=== PATIENT | female | born 1960 | race Caucasian/White ===

== ENCOUNTER 2019-09-15 08:20 | Outpatient (CLI) | payer MEDICARE, MEDICAID, SELFPAY ==
--- NOTE | 2019-09-15 | US_ITS ---
WS: [id number] RIGHT UPPER QUADRANT ULTRASOUND HISTORY: ELEVATED alkaline PHOSPHATASE COMPARISON: 10/06/2016 Liver: 15.0 cm in length. Normal size and echogenicity with no intrahepatic dilatation. No mass. Gallbladder: Normally distended gallbladder with no stones or wall thickening. CBD: 2.1 cm Pancreas: Normal size and echogenicity. Right kidney: 9.3 cm in length. Normal echogenicity with no mass or hydronephrosis. Aorta and IVC: Unremarkable. No ascites. US/US abdomen limited [id number] IMPRESSION: Normal RIGHT upper quadrant ultrasound.
== END 2019-09-15 08:21 | disposition home or self-care (01) ==
LOC: RADOUTREAD 15:33
PROVIDERS: PCP Nurse Practitioner Family; Visit Provider Nurse Practitioner Family
DX: Z01.89 Encounter for other specified special examinations (principal)

== ENCOUNTER 2019-09-16 11:58 | Outpatient (CLI) | payer MEDICARE, MEDICAID, SELFPAY ==
--- NOTE | 2019-09-16 12:02 | MM_ITS ---
WS: [id number] Bilateral screening digital mammogram, 09/16/2019 Clinical Data: SCREENING Comparison: 01/16/2012, 01/06/2010. Findings: The breast parenchymal pattern shows heterogeneous density. No spiculated masses or clustered calcifi cations are seen. There are no secondary signs of carcinoma. MM/[place] [id number] Impression: 1. Negative bilateral mammogram unchanged. 2. Recommend annual screening mammograms. BIRADS: 1-Negative FOLLOW UP: 1 Year Follow-up The CAD calibration checker was used.
== END 2019-09-16 11:59 | disposition home or self-care (01) ==
LOC: RADSHAW 11:59
PROVIDERS: PCP Nurse Practitioner Family; Visit Provider Nurse Practitioner Family
DX: Z12.31 Encounter for screening mammogram for malignant neoplasm of breast (principal)
CPT/HCPCS: 77067

== ENCOUNTER 2019-09-19 11:36 | Outpatient (CLI) | payer MEDICARE, MEDICAID, SELFPAY ==
--- NOTE | 2019-09-19 11:40 | FL_ITS ---
WS: [id number] MODIFIED BARIUM SWALLOW TECHNIQUE: Modified barium swallow with speech therapy using multiple consistencies. FLUOROSCOPY TIME: 1.8 minutes. CLINICAL INFORMATION: Other dysphagia COMPARISON: None. FINDINGS: Multiple consistencies utilized. No evidence of aspiration or penetration. Some early spillage with p ooling in the vallecula. This cleared with additional liquid. Moderate spondylitic changes cervical s pine. Slight anterolisthesis C4 on C5. No difficulties with barium tablet. FL/FL barium swallow modifd [id number] IMPRESSION: No evidence of aspiration or penetration
== END 2019-09-19 11:37 | disposition home or self-care (01) ==
PROVIDERS: Family Provider Nurse Practitioner Family; PCP Nurse Practitioner Family; Visit Provider Specialist
DX: H90.3 Sensorineural hearing loss, bilateral (principal); R42 Dizziness and giddiness; R13.19 Other dysphagia
CPT/HCPCS: 74230; 92611

== ENCOUNTER 2019-09-22 11:55 | Outpatient (CLI) | payer MEDICARE, MEDICAID, SELFPAY ==
--- NOTE | 2019-09-22 11:58 | CT_ITS ---
WS: [id number] CT LUNG CANCER SCREENING DLP: 79.16 mGy.cm DIvol: 2.28 mGy CLINICAL INFORMATION SCREENING VISIT: Baseline COMPARISON: None available. FINDINGS Diagnostic quality: Satisfactory Comments: None. Lung Nodules: Solid, irregular shaped nodule measuring 4.6 mm at the LEFT apex. May be in part associ ated with the pleural thickening at the apex, image 38 of series 3. There is an additional perifissur al nodule on the LEFT which abuts the inferior LEFT major fissure. This nodule measures 3.6 mm. This nodule is more rounded and extends into the LEFT lower lung field, image 173 of series 3. May be an i ntrafissural lymph node but its configuration appearance suggests additional workup. There are additi onal smaller nodule along the major fissure, seen best on the mid image. No endobronchial lesions. Lungs: Hyperinflated lungs with emphysema. Heart: Normal size heart. No pericardial effusion. Focal calcification in the proximal LEFT anterior descending coronary artery. Other findings: Mild atherosclerosis aorta. No aneurysmal dilatation. There are a few small mediastin al and hilar lymph nodes. Calcification in the posterior inferior LEFT thyroid course. No associated soft tissue nodule. CT/CT lung screening [id number] IMPRESSION: LUNG-RADS: 2-Benign Appearance or Behavior FOLLOW UP: 12 Month: Continue annual screening with LDCT
== END 2019-09-22 11:56 | disposition home or self-care (01) ==
LOC: RAD 11:56
PROVIDERS: Family Provider Nurse Practitioner Family; PCP Nurse Practitioner Family; Visit Provider Nurse Practitioner Family
DX: Z12.2 Encounter for screening for malignant neoplasm of respiratory organs (principal); F17.210 Nicotine dependence, cigarettes, uncomplicated
CPT/HCPCS: G0297

== ENCOUNTER 2020-01-07 08:54 | Outpatient (CLI) | payer MEDICARE, MEDICAID, SELFPAY ==
--- NOTE | 2020-01-07 10:03 | MR_ITS ---
WS: [id number] MRI BRAIN WITH HIGH-RESOLUTION IMAGING THROUGH THE INTERNAL AUDITORY CANALS WITHOUT AND WITH CONTRAST HISTORY: Bilateral SENSORINEURAL HEARING LOSS; DIZZINESS AND GIDDINESS COMPARISON: None available. TECHNIQUE: Multiplanar, multisequence imaging is performed through the brain. Additional 3 mm imaging performed in multiple planes through the internal auditory canal. Postcontrast imaging with 12 ml's of Prohance. No acute intracranial hemorrhage, midline shift, edema or mass effect. Several nonenhancing T2 and FL AIR signal abnormalities in the subcortical and periventricular white matter. Multifocal areas of hemosiderin deposition in the RIGHT cerebellum. Mixed increased and decreased sig nal on the T2 sequences in the RIGHT cerebellum. A focal nodule measures 11 x 10 mm without significa nt enhancement. There is a additional spiderlike area of enhancement consistent with a moderate size venous developmental angioma. Ventricles and extra-axial spaces are normal. No inferior displacement of cerebellar tonsils. Clivus and pituitary gland are normal. Internal and external auditory canals: Unremarkable. Cranial nerves VII and VIII complexes: Unremarkable. No enhancement or mass. Cerebellopontine angles: Normal. Paranasal sinuses: Normal. Mastoid air cells: Normal. Calvarium and scalp: Normal. Visualized gambell of [place] and dural venous sinuses demonstrate no abnormality. MR/MR iac's wo/w con* [id number] IMPRESSION: 1. Normal internal auditory canals. 2. RIGHT cerebellar mixed vascular malformation. No acute hemorrhage. 3. Mild chronic microvascular ischemic disease.
== END 2020-01-07 08:55 | disposition home or self-care (01) ==
LOC: RADSHAW 08:55
PROVIDERS: Family Provider Nurse Practitioner Family; PCP Nurse Practitioner Family; Visit Provider Specialist
DX: H90.3 Sensorineural hearing loss, bilateral (principal); R42 Dizziness and giddiness; R13.19 Other dysphagia; I25.9 Chronic ischemic heart disease, unspecified
CPT/HCPCS: 70553; A9579

== ENCOUNTER 2020-01-22 09:08 | Outpatient (CLI) | payer MEDICARE, MEDICAID, SELFPAY ==
--- NOTE | 2020-01-22 09:38 | NM_ITS ---
WS: [id number] NUCLEAR MEDICINE PARATHYROID SCAN HISTORY: HYPERCALCEMIA COMPARISON: None available. Patient is injected with 19.4 mCi technetium 99m Sestamibi. Static imaging of the anterior neck and u pper thorax submitted at injection time and one hour postinjection. Sternal notch marker and chin mar kers are placed. Normal activity and uptake in the thyroid gland bilaterally on the early imaging. On the delayed imag ing, activity from the thyroid gland has washed out. There is no persistent focal nodule to suggest p arathyroid adenoma. NM/NM parathyroid [id number] IMPRESSION: No parathyroid adenoma identified.
== END 2020-01-22 09:09 | disposition home or self-care (01) ==
PROVIDERS: Family Provider Nurse Practitioner Family; PCP Nurse Practitioner Family; Visit Provider Specialist
DX: E83.52 Hypercalcemia (principal)
CPT/HCPCS: 78070; A9500

== ENCOUNTER 2020-03-17 12:38 | Outpatient (RCR) | payer MEDICARE, MEDICAID, SELFPAY | END 2020-04-14 23:59 | disposition home or self-care (01) | LOC: SPT 12:38 | PROVIDERS: PCP Nurse Practitioner Family; Referring Provider Otolaryngology; Visit Provider Otolaryngology | DX: R42 Dizziness and giddiness (principal); E83.52 Hypercalcemia; E55.9 Vitamin D deficiency, unspecified; R74.8 Abnormal levels of other serum enzymes; F17.200 Nicotine dependence, unspecified, uncomplicated; Z80.1 Family history of malignant neoplasm of trachea, bronchus and lung | CPT/HCPCS: 97110; 97162; 99204 ==

== ENCOUNTER → 2020-04-19 14:12 | Outpatient (BNVA) | payer MEDICARE, MEDICAID, SELFPAY | PROVIDERS: PCP Nurse Practitioner Family; Visit Provider Podiatrist Foot & Ankle Surgery | DX: M96.0 Pseudarthrosis after fusion or arthrodesis (principal); M21.611 Bunion of right foot; M21.612 Bunion of left foot; M79.671 Pain in right foot; M79.672 Pain in left foot | CPT/HCPCS: 73630 ==

== ENCOUNTER → 2020-05-20 14:02 | Outpatient (BNVA) | payer MEDICARE, MEDICAID, SELFPAY | PROVIDERS: PCP Nurse Practitioner Family; Visit Provider Podiatrist Foot & Ankle Surgery | DX: M96.0 Pseudarthrosis after fusion or arthrodesis (principal); M21.611 Bunion of right foot; M21.612 Bunion of left foot | CPT/HCPCS: 73630 ==

== ENCOUNTER → 2020-06-02 14:12 | Outpatient (BNVA) | payer MEDICARE, MEDICAID, SELFPAY | PROVIDERS: PCP Nurse Practitioner Family; Visit Provider Specialist | DX: M79.632 Pain in left forearm (principal) | CPT/HCPCS: 73090 ==

== ENCOUNTER → 2020-07-01 14:54 | Outpatient (BNVA) | payer MEDICARE, MEDICAID, SELFPAY | PROVIDERS: PCP Nurse Practitioner Family; Visit Provider Podiatrist Foot & Ankle Surgery | DX: M96.0 Pseudarthrosis after fusion or arthrodesis (principal); Y83.8 Other surgical procedures as the cause of abnormal reaction of the patient, or of later complication, without mention of misadventure at the time of the procedure; S92.901A Unspecified fracture of right foot, initial encounter for closed fracture; X58.XXXA Exposure to other specified factors, initial encounter | CPT/HCPCS: 73630 ==

== ENCOUNTER 2020-07-01 15:19 | Outpatient (CLI) | payer MEDICARE, MEDICAID, SELFPAY | END 2020-07-01 15:20 | disposition home or self-care (01) | LOC: SPT 15:20 | PROVIDERS: PCP Nurse Practitioner Family; Visit Provider Podiatrist Foot & Ankle Surgery | DX: R42 Dizziness and giddiness (principal) | CPT/HCPCS: 97760; L3030 ==

== ENCOUNTER 2020-08-23 15:18 | Outpatient (CLI) | payer MEDICARE, MEDICAID, SELFPAY ==
[2020-08-23 16:34] LABS: Calcium 11.4 mg/dL (8.5-10.5)
[2020-08-23 16:44] LABS: 25 Hydroxy Vitamin D 45 ng/mL (30-100)
[2020-08-23 17:04] LABS: Parathyroid Hormone 226.2 pg/mL (15-65)
== END 2020-08-23 15:19 | disposition home or self-care (01) ==
PROVIDERS: PCP Nurse Practitioner Family; Visit Provider Internal Medicine
DX: E83.52 Hypercalcemia (principal); R74.8 Abnormal levels of other serum enzymes
CPT/HCPCS: 36415; 82306; 82310; 83970; 84075; 84443

== ENCOUNTER → 2020-10-25 10:34 | Outpatient (BNVA) | payer MEDICARE, MEDICAID, SELFPAY | PROVIDERS: PCP Nurse Practitioner Family; Visit Provider Psychiatry & Neurology Neurology | DX: M79.632 Pain in left forearm (principal); F17.210 Nicotine dependence, cigarettes, uncomplicated | CPT/HCPCS: 95886; 95909 ==

== ENCOUNTER → 2020-10-27 11:40 | Outpatient (BNVA) | payer MEDICARE, MEDICAID, SELFPAY | PROVIDERS: PCP Nurse Practitioner Family; Visit Provider Podiatrist Foot & Ankle Surgery | DX: M96.0 Pseudarthrosis after fusion or arthrodesis (principal); M21.611 Bunion of right foot; M21.612 Bunion of left foot; Z46.89 Encounter for fitting and adjustment of other specified devices | CPT/HCPCS: 73630; L3100 ==

== ENCOUNTER 2020-10-27 14:18 | Outpatient (CLI) | payer MEDICARE, MEDICAID, SELFPAY | END 2020-10-27 14:19 | disposition home or self-care (01) | LOC: SPT 14:19 | PROVIDERS: PCP Nurse Practitioner Family; Visit Provider Podiatrist Foot & Ankle Surgery | DX: Z46.89 Encounter for fitting and adjustment of other specified devices (principal); M96.0 Pseudarthrosis after fusion or arthrodesis; M21.611 Bunion of right foot; M21.612 Bunion of left foot | CPT/HCPCS: L3100 ==

== ENCOUNTER → 2021-01-25 15:17 | Outpatient (BNVA) | payer MEDICARE, MEDICAID, SELFPAY | PROVIDERS: PCP Nurse Practitioner Family; Visit Provider Podiatrist Foot & Ankle Surgery | DX: M96.0 Pseudarthrosis after fusion or arthrodesis (principal); M21.611 Bunion of right foot; M21.612 Bunion of left foot | CPT/HCPCS: 73630 ==

== ENCOUNTER → 2021-02-14 15:46 | Outpatient (BNVA) | payer MEDICARE, MEDICAID, SELFPAY | PROVIDERS: PCP Nurse Practitioner Family; Visit Provider Podiatrist Foot & Ankle Surgery | DX: Z01.818 Encounter for other preprocedural examination (principal) | CPT/HCPCS: 87635 ==

== ENCOUNTER 2021-02-18 09:01 | Day surgery (SDC) | payer MEDICARE, MEDICAID, SELFPAY ==
[2021-02-17 11:16] VITALS: BMI 21.8
--- NOTE | 2021-02-18 09:17 | W.PM.OPSUD ---
Surgery/Procedure H&P Update DATE OF PROCEDURE: February 18, 2021 DATE H&P PERFORMED: 01/25/21 H&P UPDATE INFORMATION: I have reviewed H&P completed within last 30 days, I have examined patient prior to procedure, No changes to prior documentation and H&P is in [facility] EMR on date indicated PREOP DIAGNOSIS: Right bunion PLANNED PROCEDURE: Operation Date: 02/18/21 10:05 Proposed Procedures p right Janes Osteotomy 05874 M21.619(Right) - Jesús Schmid DPM
[2021-02-18 09:21] VITALS: BP 134/50; PULSE 81; RESP 17; TEMP 36.6; O2SAT 97
[2021-02-18] MEDS: sodium chloride 0.9% 1,000 ML 30 ML IV (09:36)
--- NOTE | 2021-02-18 09:42 | ANES.PREANE2 ---
Pre-Anesthetic Assessment Pre-Anesthetic Assessment: Height/Weight: Height 1.63 m Weight 57.606 kg Temp Pulse Resp BP Pulse Ox 97.8 F 81 17 134/50 97 02/18/21 09:21 02/18/21 09:21 02/18/21 09:21 02/18/21 09:21 02/18/21 09:21 Preop Diagnosis: Right bunion Proposed Procedure: Operation Date: 02/18/21 10:05 Proposed Procedures p right Janes Osteotomy 14880 M21.619(Right) - Jesús Schmid DPM Familial anesthetic complications: none Was Beta Maye taken within 24 hours: N/A Was Clonidine taken within 24 hours: N/A Last intake: Intake Last Liquid Date 02/17/21 Last Liquid Time 23:00 Last Solid Date 02/17/21 Last Solid Time 23:00 Social: Social History: Tobacco and No alcohol Exam: Pre-Anes Outpt Exam: alert, oriented x 3, clear to auscultation bilaterally and regular rate & rhythm Airway: Cervical ROM: WNL MP: 3 Dentition: False GI: GI: GERD Metabolic: Comments: hyperPTH Musc/skel: Musc/skel: Fibromyalgia Anesthetic Plan: ASA status: 2 Anesthesia: MAC Risk of > 500 ml blood loss (7ml/kg in children): No Meds/Allergies Current Medications: Current Medications Generic Name Dose Route Start Last Admin Trade Name Freq PRN Reason Stop Dose Admin Sodium Chloride 1,000 mls @ 30 ml s/hr 02/18/21 09:15 02/18/21 09:36 Sodium Chloride 0.9% IV 02/19/21 09:14 30 mls/hr .Q24H FARZANA Administration PFSH Anesthesia PFSH: Medical History Arthritis Benign neoplasm of bone of hand Depression Fibromyalgia Neuropathy Post traumatic stress disorder (PTSD) Surgical History (Updated 02/17/21 @ 11:08 by Tiffanie Floyd) History of tonsillectomy Family History Father Aneurysm Mother Cancer neck Social History Smoking and tobacco status: current every day smoker Quit status (tobacco): not considering quitting Alcohol intake: current Alcohol intake frequency: holidays/special occasions only Data Anesthesia Cardiac Studies: No Data to Display
[2021-02-18 11:49] VITALS: BP 83/52; PULSE 64; RESP 20; TEMP 36.1; O2SAT 96
--- NOTE | 2021-02-18 11:51 | XRR_ITS ---
PROCEDURE INFORMATION: Exam: XR Right Foot Exam date and time: 02/18/2021 11:51 AM Age: 60 years old Clinical indication: Device placement; Other: Procedure done: Janes osteotomy right. Cpt code 57354; Prior surgery; Surgery date: Post-operative (0-2 days); Additional info: Post op TECHNIQUE: Imaging protocol: XR Right foot. Views: 3 or more views. COMPARISON: [place] [id number] ORTH 01/25/2021 3:29 PM FINDINGS: Bones/joints: Severe sclerotic changes are seen involving the proximal 1st metatarsal and midfoot. Postsurgical pin is seen in the proximal phalange of the great toe. Apparent chronic surgical defect is seen in the distal medial 1st metatarsal. Chronic bone deformity is seen in the distal shaft of the 2nd metatarsal. No acute abnormalities are seen. Soft tissues: Unremarkable XR/XR foot RT min 3V* [id number] IMPRESSION: 1. Severe osteoarthritis seen in the proximal 1st metatarsal 2. Surgical hardware proximal phalange great toe. 3. Surgical defect distal 1st metatarsal 4. Chronic deformity distal shaft 2nd metatarsal 5. Otherwise negative for acute bone abnormality
--- NOTE | 2021-02-18 11:52 | PM.OP ---
Operative Report Date of procedure: February 18, 2021 Pre-op Diagnosis: Right bunion Post-op diagnosis: same Post-op Findings: Same Procedure Done: Janes osteotomy right. CPT code 85506 Implants: 3-0 Vicryl, 4-0 nylon, 10 mm Bogue nitinol compression staple Specimens removed/disposition: None Pathology: none sent Surgeon: Jesús Schmid D.P.M. Surgical Services Assistant: Kyra Anesthesia: MAC Estimated blood loss: Less than 5 mL Tourniquet time: 31 IV fluids: None Urine output: None Complications: None Findings: None Condition: stable Disposition: PACU Brief History: Patient has had a recurrence of bunion surgery initially done by another provider. Weightbearing status was noncompliant postoperatively jeopardizing her fixation and correction. Right now her right great toe abuts aggressively against second toe and is rubbing and is no longer able to be alleviated by wide shoes and spacer. She like to have this corrected. I am recommending an Janes osteotomy. Risks include pain, bleeding, numbness, infection, hardware failure, delayed union, malunion, nonunion, overcorrection deformity, hallux varus, recurrence of hallux valgus and need for further surgical intervention. Patient is agreeable wishes to proceed. Has been n.p.o. since midnight. Informed consent signed by patient and myself. No guarantees written, expressed or implied. I initialed the right foot she wishes to proceed. Procedure: Under mild sedation the patient was brought to the operating room and placed on the operating table in supine position. A timeout was performed. Anesthesia was then administered by the anesthesia service. Local anesthesia injected by myself consisting of 20 cc of 0.5% Marcaine plain and a right Lakhani block fashion. Well-padded medic tourniquet applied to the right ankle. Right lower extremity was scrubbed, prepped and draped utilizing normal aseptic technique. Right foot was examined a weighted with an Esmarch bandage and the tourniquet was inflated to 250 mmHg. Attention was directed to the medial aspect of the right hallux where a linear longitudinal incision was made through skin and blunt and sharp dissection carried down through subcutaneous tissue to the level of periosteum. Care was taken to retract and preserve neurovascular tendinous structures. Bleeders were ligated and cauterized as necessary. Janes osteotomy performed maintaining a lateral cortical hinge this was flushed with saline solution, bone wedge was removed and passed from operative field. Osteotomy was closed and secured utilizing a Deepti 10 mm x 10 mm x 10 mm nitinol compression staple with excellent bony apposition and compression noted. Extensor hallucis brevis was then released and extensor houses longus was elongated and repaired utilizing 3-0 Vicryl. Incision was then flushed with copious amounts of sterile saline solution. Lateral release was performed in the first interspace with improved position of the great toe. Further irrigation with saline solution performed followed by closure with deep structures closed with 3-0 Vicryl and skin closed with 4-0 nylon. Exparel total of 10 cc expanded with 10 cc of Marcaine injected at the operative site per manufacture recommendation and technique. Dressings consisting of Adaptic, sterile 4 x 4, Kerlix and Alfredo wrap followed by a cam boot applied and tourniquet was released. Prompt hyperemic response was noted to the distal digits of the right foot. Patient tolerated procedure and anesthesia well and was transferred to the PACU with vital signs stable and vascular status intact. Following a period of postoperative monitoring will be discharged home was prescribed Percocet to be taken judiciously as needed for pain. Follow-up next Sunday, February 25 appointed time was provided my cell phone number to contact with any questions or concerns postoperatively.
[2021-02-18 11:55] VITALS: BP 83/54; PULSE 63; RESP 18; O2SAT 95
[2021-02-18 12:00] VITALS: BP 104/66; PULSE 64; RESP 18; TEMP 36.4; O2SAT 98
[2021-02-18 12:09] VITALS: BP 108/68; PULSE 68; RESP 18; TEMP 36.2; O2SAT 99
[2021-02-18 12:24] VITALS: BP 156/79; PULSE 64; RESP 18; O2SAT 99
--- NOTE | 2021-02-18 14:50 | ANE.PACU2 ---
Inpatient post-anesthesia follow up: Airway intact: Yes Vital signs: Temperature 97.1 F Pulse Rate 64 Respiratory Rate 18 Blood Pressure 156/79 Pulse Oximetry 99 Oxygen Delivery Me thod Room Air Oxygen Flow Rate Fraction of Inspir ed Oxygen Hydration adequate: Yes Nausea and vomiting: No Pain level: 1 Mental status: Baseline
== END 2021-02-18 12:37 | disposition home or self-care (01) ==
PROVIDERS: PCP Nurse Practitioner Family; Visit Provider Podiatrist Foot & Ankle Surgery
PROC: (CPT 28298; principal; 2021-02-18 09:55)
DX: M21.611 Bunion of right foot (principal); K21.9 Gastro-esophageal reflux disease without esophagitis; M79.7 Fibromyalgia; M19.90 Unspecified osteoarthritis, unspecified site; F32.9 Major depressive disorder, single episode, unspecified; F17.210 Nicotine dependence, cigarettes, uncomplicated
CPT/HCPCS: 28298; 73630; 82340; C1713; C9290; J0690; J1885; J2250; J2704; J3010; J3490; J7030

== ENCOUNTER → 2021-03-03 16:19 | Outpatient (BNVA) | payer MEDICARE, MEDICAID, SELFPAY | PROVIDERS: PCP Nurse Practitioner Family; Visit Provider Podiatrist Foot & Ankle Surgery | DX: M21.611 Bunion of right foot (principal) | CPT/HCPCS: 73630 ==

== ENCOUNTER → 2021-03-17 13:44 | Outpatient (BNVA) | payer MEDICARE, MEDICAID, SELFPAY | PROVIDERS: PCP Nurse Practitioner Family; Visit Provider Podiatrist Foot & Ankle Surgery | DX: Z98.890 Other specified postprocedural states (principal) | CPT/HCPCS: 73630 ==

== ENCOUNTER → 2021-03-31 14:34 | Outpatient (BNVA) | payer MEDICARE, MEDICAID, SELFPAY | PROVIDERS: PCP Nurse Practitioner Family; Visit Provider Podiatrist Foot & Ankle Surgery | DX: Z98.890 Other specified postprocedural states (principal) | CPT/HCPCS: 73630 ==

== ENCOUNTER 2021-04-25 10:43 | Outpatient (CLI) | payer MEDICARE, MEDICAID, SELFPAY ==
--- NOTE | 2021-04-25 10:53 | MM_ITS ---
WS: [id number] BILATERAL SCREENING DIGITAL MAMMOGRAM WITH CAD HISTORY: SCREENING COMPARISON: 09/16/2019, 01/16/2012 Bilateral CC and MLO views submitted. Computer aided detection analyzed. Breast composition: There are scattered areas of fibroglandular density. No suspicious masses, microc alcifications or architectural distortion. Benign calcifications in the LEFT breast. MM/[place] [id number] IMPRESSION: BI-RADS: 2-Benign FOLLOW UP: 1 Year Follow-up
== END 2021-04-25 10:44 | disposition home or self-care (01) ==
LOC: RADSHAW 10:49
PROVIDERS: PCP Nurse Practitioner Family; Visit Provider Nurse Practitioner Family
DX: Z12.31 Encounter for screening mammogram for malignant neoplasm of breast (principal)
CPT/HCPCS: 77067

== ENCOUNTER → 2021-06-24 11:48 | Outpatient (BNVA) | payer MEDICARE, MEDICAID, SELFPAY | PROVIDERS: Visit Provider Family Medicine Adult Medicine | DX: N93.9 Abnormal uterine and vaginal bleeding, unspecified (principal); M79.7 Fibromyalgia; M19.021 Primary osteoarthritis, right elbow; M19.022 Primary osteoarthritis, left elbow; R30.0 Dysuria; H93.19 Tinnitus, unspecified ear | CPT/HCPCS: 81000 ==

== ENCOUNTER → 2021-08-25 14:34 | Outpatient (BNVA) | payer MEDICARE, MEDICAID, SELFPAY | PROVIDERS: PCP Family Medicine Adult Medicine; Visit Provider Podiatrist Foot & Ankle Surgery | DX: Z01.818 Encounter for other preprocedural examination (principal); M12.872 Other specific arthropathies, not elsewhere classified, left ankle and foot | CPT/HCPCS: 73630 ==

== ENCOUNTER → 2021-09-13 13:08 | Outpatient (BNVA) | payer MEDICARE, MEDICAID, SELFPAY | PROVIDERS: PCP Family Medicine Adult Medicine; Visit Provider Podiatrist Foot & Ankle Surgery | DX: Z20.822 Contact with and (suspected) exposure to COVID-19 (principal); M21.612 Bunion of left foot | CPT/HCPCS: 73630; 87635 ==

== ENCOUNTER 2021-09-16 09:37 | Day surgery (SDC) | payer MEDICARE, MEDICAID, SELFPAY ==
[2021-09-15 09:59] VITALS: BMI 21.9
[2021-09-15 14:04] VITALS: BMI 21.9
[2021-09-16] VITALS (8 sets, daily range): BP systolic 84–130; BP diastolic 56–76; PULSE 61–69; RESP 12–18; TEMP 36.6–37.1; O2SAT 92–98
--- NOTE | 2021-09-16 | SCC_ITS ---
Procedure done: Left first metatarsophalangeal joint arthrodesis. CPT code 65570 5 seconds of fluoroscopic guidance, for a cumulative dose of 0.1 mGy, was provided to Dr. Schmid by the radiology department. C-arm images of the RIGHT foot were saved for the patient's permanent record. [facility]
--- NOTE | 2021-09-16 09:50 | W.PM.OPSUD ---
Surgery/Procedure H&P Update DATE OF PROCEDURE: September 16, 2021 DATE H&P PERFORMED: 09/13/21 CHANGES TO PREVIOUS DOCUMENTATION: none PREOP DIAGNOSIS: Bunion left foot PLANNED PROCEDURE: Operation Date: 09/16/21 11:00 Proposed Procedures p Arthrodesis left 1st metatarsal phalangeal joint m21.612(Left) - Jesús Schmid DPM
[2021-09-16] MEDS: CELEcoxib 200 mg Capsule 400 MG PO (10:00)
[2021-09-16] MEDS: gabapentin 300 mg Capsule PO (10:00)
[2021-09-16] MEDS: sodium chloride 0.9% 1,000 ML 30 ML IV (10:00)
[2021-09-16] MEDS: lidocaine 1% INJ 20 mL INJECTION (10:33)
--- NOTE | 2021-09-16 10:34 | P.ANESASSM_ITS ---
Pre-Anesthetic Assessment Height/Weight: Height 1.63 m Weight 58.06 kg Temp Pulse Resp BP Pulse Ox 98 F 69 18 108/67 98 09/16/21 10:01 09/16/21 10:01 09/16/21 10:01 09/16/21 10:01 09/16/21 10:01 Preop Diagnosis: Bunion left foot Operation Date: 09/16/21 11:00 Proposed Procedures p Arthrodesis left 1st metatarsal phalangeal joint m21.612(Left) - Jesús Schmid DPM Familial anesthetic complications: None Was Beta Maye taken within 24 hours: N/A Was Clonidine taken within 24 hours: N/A Last intake: Intake Last Liquid Date 09/15/21 Last Liquid Time 23:57 Last Solid Date 09/15/21 Last Solid Time 23:57 Social Tobacco and No alcohol Exam alert, oriented x 3, clear to auscultation bilaterally and regular rate & rhythm Airway Submandibular: within normal limits Cervical ROM: within normal limits Mallampati: Class II Dentition: false Pulmonary Chronic Obstructive Pulmonary Disease GI Gastroesophageal Reflux Disease Metabolic Thyroid Disease [facility] [place] Fibromyalgia and Osteoarthritis/DJD Neuropsych Anxiety, Depression and Neuropathy Anesthetic Plan ASA status: 3 Anesthesia: MAC Risk of > 500 ml blood loss (7ml/kg in children): No Medications/Allergies Home Medications Medication Instructions Recorded Confirmed Last Taken Type cholecalciferol (vitamin D3) 25 25 mcg PO DAILY 03/17/20 09/16/21 09/15/21 History mcg (1,000 unit) capsule Sole Supports #1 ea 05/20/20 09/13/21 Unknown Rx hydroxyzine HCl 50 mg tablet 50 mg PO .qhs #30 tab 08/02/21 09/16/21 09/15/21 Rx meloxicam 15 mg tablet 15 mg PO DAILY #30 tab 08/02/21 09/16/21 09/15/21 Rx baclofen 10 mg tablet 10 mg PO TID #90 tab 08/30/21 09/16/21 09/15/21 Rx citalopram 20 mg tablet (Celexa) 20 mg PO DAILY 30 Days #30 tab 08/30/21 09/16/21 09/15/21 Rx duloxetine 60 mg capsule,delayed 60 mg PO BID #60 cap 08/30/21 09/16/21 09/15/21 Rx release (Cymbalta) tramadol 50 mg tablet 50 mg PO Q12H PRN 30 Days #30 tab 08/30/21 09/15/21 Unknown Rx left leg extension for wheelchair #1 ea 09/13/21 09/13/21 Unknown Rx citalopram 40 mg tablet (Celexa) 40 mg PO DAILY 09/15/21 09/16/21 09/15/21 H istory gabapentin 600 mg tablet 600 mg PO TID 09/15/21 09/16/21 09/15/21 History pantoprazole 20 mg tablet,delayed 20 mg PO DAILY 09/15/21 09/15/21 Unknown History release Allergies Allergy/AdvReac Type Severity Reaction Status Date / Time codeine Allergy ALGY-Hives Verified 09/15/21 13:58 Current Medications Generic Name Dose Route Start Last Admin Trade Name Freq PRN Reason Stop Dose Admin Sodium Chloride 1,000 mls @ 30 mls/hr 09/16/21 09:30 09/16/21 10:00 Sodium Chloride 0.9% IV 09/17/21 09:29 30 mls/hr .Q24H FARZANA Administration PFSH Anesthesia Medical History Acute bacterial sinusitis Allergic rhinitis Arthritis Benign neoplasm of bone of hand Bilateral bunions Chronic tension headaches Depression Dysuria Family history of lung cancer Fibromyalgia GERD (gastroesophageal reflux disease) Hypercalcemia Hyperparathyroidism Insomnia disorder Kidney stones, calcium oxalate Neuropathy 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
--- NOTE | 2021-09-16 11:37 | XR_ITS ---
WS: [id number] Left foot, 3 views, 09/16/2021 Clinical Data: post op Comparison: Left foot, 09/13/2021. Findings: The patient has had a bunionectomy at the head of the left first metatarsal with arthrodesis. The art hrodesis is fixed with a longitudinal screw across the joint, a plate across the joint fixed with 6 o rthopedic screws. There is a fiberglass cast about the foot. XR/XR foot LT min 3V* [id number] Impression: 1. Bunionectomy at the head of the left first metatarsal. 2. Arthrodesis of the left first MTP joint with plate and screws.
--- NOTE | 2021-09-16 16:20 | ANE.PACU2 ---
Inpatient post-anesthesia follow up: Airway intact: Yes Vital signs: Temperature 98.8 F Pulse Rate 67 Respiratory Rate 16 Blood Pressure 130/76 Pulse Oximetry 93 Oxygen Delivery Me thod Room Air Oxygen Flow Rate Fraction of Inspir ed Oxygen Hydration adequate: Yes Nausea and vomiting: No Pain level: 2 Mental status: Baseline
--- NOTE | 2021-09-16 19:44 | PM.OP ---
Operative Report Date of procedure: September 16, 2021 Pre-op diagnosis: Bunion left foot Post-op diagnosis: Same Post-op findings: none Procedure done: Left first metatarsophalangeal joint arthrodesis. CPT code 57412 Implants: [place] 28 first metatarsophalangeal joint arthrodesis locking plate with 2.7 mm and 3.5 millimeter screws locking and nonlocking as well as 3 mm headed compression screw. 3-0 Vicryl, 4-0 Vicryl, 4-0 nylon Specimens removed/disposition: None Pathology: None Surgeon: Jesús Schmid D.P.M. Manager Combination: Nighat Estimated blood loss: 5 See intraoperative documentation, tourniquet time was less than 60 minutes. IV fluids: None Urine output: 0 Complications: None Findings: None Brief History: Patient has a severe bunion in the presence of metatarsus adductus. Recommended left first metatarsophalangeal joint arthrodesis with risks including pain, bleeding, numbness, infection, hardware failure, hardware irritation, delayed union, malunion, nonunion, chronic swelling, chronic numbness, transfer pressure and transfer lesions, overload of the second metatarsophalangeal joint need for advanced bracing, orthotics, supportive shoes and physical therapy. Also risk for deep vein thrombosis, heart attack, stroke and . N.p.o. since midnight, Covid negative, informed consent signed by patient and myself, no guarantees written, expressed or implied. Patient wishes to proceed. Procedure: Under mild sedation the patient was brought to the operating room and remained on the gurney in supine position. A timeout was performed. Anesthesia was then administered by the anesthesia service. Local anesthesia injected by myself consisting of 30 cc of one-to-one mixture 1% lidocaine and 0.5% Marcaine plain and a left Lakhani block fashion. Well-padded pneumatic tourniquet applied to the left ankle. Left lower extremity was then scrubbed, prepped and draped utilizing normal aseptic technique. Left foot was exanguinated with an Esmarch bandage and a tourniquet inflated to 250 mmHg. Attention was directed to the left first metatarsophalangeal joint where medial incision was made to the joint medial and parallel to the extensor houses longus tendon. Dissection was carried down through skin and subcutaneous tissue utilizing blunt and sharp technique. Care was taken to retract and preserve neurovascular and tendinous structures. All bleeders were ligated and cauterized as necessary. Linear periosteal capsular incision was performed in the head of the first metatarsal and base of the proximal phalanx of the left first metatarsal phalangeal joint was freed from their soft tissue attachments followed by removal of all cartilage utilizing cone and cup reamers as well as curettage and rongeur. Restoring normal anatomy to the first metatarsal head and resecting the medial eminence this was passed from operative field and all rough edges were smoothed. Incision was flushed with copious amounts of sterile skin solution followed by joint preparation for arthrodesis via subchondral drilling with a 2 mm subchondral drill bit both at the head of the first metatarsal and base of the proximal phalanx this was then fixated utilizing a [place] 28 first metatarsophalangeal joint arthrodesis plate with 2.7 mm locking screws distally and accommodation of locking and nonlocking 3.5 millimeter screws proximally, imparted compression utilizing the compression slot per snow remover recommendations and technique as well as a interfragmentary screw utilizing the precision guide from distal medial to proximal lateral across the arthrodesis site this was a [place] 28 headed 3 mm screw. Excellent bony apposition and compression noted. The left first metatarsal plantar joint was positioned in slight valgus and dorsiflexion and hardware noted to be excellent in all 3 planes utilizing intraoperative fluoroscopy. Incision was flushed with saline solution and closed in a layered fashion. 3-0 Vicryl to close the capsule, 4-0 Vicryl for subcutaneous tissue and 4-0 nylon at skin. Incision site was dressed with Adaptic, sterile 4 x 4, Kerlix and Alfredo wrap. Cam boot was applied and tourniquet was deflated, a prompt hyperemic response was noted to the distal digits of the left foot. Patient tolerated the procedure and anesthesia well and was transferred to the PACU with vital signs stable vascular status intact. Following a period of postop monitoring she will be discharged home is given explicit instructions to remain strict nonweightbearing at all times to the left lower extremity and elevate her left foot while resting.
== END 2021-09-16 13:12 | disposition home or self-care (01) ==
PROVIDERS: PCP Family Medicine Adult Medicine; Visit Provider Podiatrist Foot & Ankle Surgery
PROC: (CPT 28740; principal; 2021-09-16 10:50)
DX: M21.612 Bunion of left foot (principal); J44.9 Chronic obstructive pulmonary disease, unspecified; K21.9 Gastro-esophageal reflux disease without esophagitis; M79.7 Fibromyalgia; M19.90 Unspecified osteoarthritis, unspecified site; F32.9 Major depressive disorder, single episode, unspecified; F41.9 Anxiety disorder, unspecified; F17.210 Nicotine dependence, cigarettes, uncomplicated; G62.9 Polyneuropathy, unspecified
CPT/HCPCS: 28750; 73630; 76000; C1713; J0690; J2250; J3010; J3490; J7030

== ENCOUNTER → 2021-09-29 15:06 | Outpatient (BNVA) | payer MEDICARE, MEDICAID, SELFPAY | PROVIDERS: PCP Family Medicine Adult Medicine; Visit Provider Podiatrist Foot & Ankle Surgery | DX: Z98.890 Other specified postprocedural states (principal) | CPT/HCPCS: 73630 ==

== ENCOUNTER → 2021-10-13 13:33 | Outpatient (BNVA) | payer MEDICARE, MEDICAID, SELFPAY | PROVIDERS: PCP Family Medicine Adult Medicine; Visit Provider Podiatrist Foot & Ankle Surgery | DX: Z98.890 Other specified postprocedural states (principal) | CPT/HCPCS: 73630 ==

== ENCOUNTER → 2021-11-30 12:48 | Outpatient (BNVA) | payer MEDICARE, MEDICAID, SELFPAY | PROVIDERS: PCP Family Medicine Adult Medicine; Visit Provider Podiatrist Foot & Ankle Surgery | DX: Z98.890 Other specified postprocedural states (principal); M21.612 Bunion of left foot; M79.672 Pain in left foot | CPT/HCPCS: 73630 ==

== ENCOUNTER → 2022-03-28 08:56 | Outpatient (BNVA) | payer MEDICARE, MEDICAID, SELFPAY | PROVIDERS: PCP Family Medicine Adult Medicine; Visit Provider Orthopaedic Surgery | DX: M17.11 Unilateral primary osteoarthritis, right knee (principal) | CPT/HCPCS: 73560; 73565; 99203 ==

== ENCOUNTER → 2022-05-29 12:25 | Outpatient (BNVA) | payer MEDICARE, MEDICAID, SELFPAY | PROVIDERS: PCP Family Medicine Adult Medicine; Visit Provider Podiatrist Foot & Ankle Surgery | DX: M20.42 Other hammer toe(s) (acquired), left foot (principal) | CPT/HCPCS: 99214 ==

== ENCOUNTER 2022-06-01 07:33 | Outpatient (CLI) | payer MEDICARE, MEDICAID, SELFPAY ==
--- NOTE | 2022-06-01 07:30 | CT_ITS ---
WS: [id number] LDCT LUNG CANCER SCREENING TECHNIQUE: Noncontrast CT of the chest with coronal and sagittal reformatted images. CLINICAL INFORMATION: one yr follow COMPARISON: September 22, 2019 DLP: 76.71 mGy.cm DIvol: Mean CTDIvol: 1.60 (mGy) All CT scans at [facility] use at least one of these dose optimization techniques: automat ed exposure control; mA and/or kV adjustment per patient size (includes targeted exams where dose is matched to clinical indication); or iterative reconstruction. FINDINGS: 6 mm nodule LEFT lung apex with associated fibrosis is unchanged. Fibrosis in both lung apices. Tiny nodule along the LEFT fissure measuring 3.5 mm is unchanged. A few small subcentimeter nodules along the major fissure unchanged. Normal caliber thoracic aorta. Aortic calcification. No axillary lymphadenopathy. No mediastinal or h ilar lymphadenopathy. Mild thoracic kyphosis. CT/CT lung screening [id number] IMPRESSION: LUNG-RADS: 2-Benign Appearance or Behavior FOLLOW UP: 12 Month: Continue annual screening with LDCT
== END 2022-06-01 07:34 | disposition home or self-care (01) ==
LOC: RAD 07:35
PROVIDERS: PCP Family Medicine Adult Medicine; Visit Provider Family Medicine Adult Medicine
DX: Z12.2 Encounter for screening for malignant neoplasm of respiratory organs (principal); R91.1 Solitary pulmonary nodule; F17.200 Nicotine dependence, unspecified, uncomplicated
CPT/HCPCS: 71271

== ENCOUNTER → 2022-10-05 07:58 | Outpatient (BNVA) | payer MEDICARE, MEDICAID, SELFPAY | PROVIDERS: PCP Family Medicine Adult Medicine; Visit Provider Internal Medicine | DX: E55.9 Vitamin D deficiency, unspecified (principal); N20.0 Calculus of kidney; R74.8 Abnormal levels of other serum enzymes; E21.0 Primary hyperparathyroidism; E07.9 Disorder of thyroid, unspecified; Z80.1 Family history of malignant neoplasm of trachea, bronchus and lung | CPT/HCPCS: 36415; 80053; 82306; 82310; 83970; 99214 ==

== ENCOUNTER 2022-11-15 09:03 | Outpatient (CLI) | payer MEDICAID, SELFPAY ==
--- NOTE | 2022-11-15 09:10 | MM_ITS ---
WS: [id number] Bilateral screening 3D tomosynthesis digital mammogram, 11/15/2022 Clinical Data: SCREENING Comparison: 04/25/2021, 09/16/2019, 01/16/2012, 01/06/2010. Findings: The breast parenchymal pattern shows fibroglandular tissue. No spiculated masses or clustered calcifi cations are seen. There are no secondary signs of carcinoma. There are mole markers on the left breas t. MM/[place] [id number] Impression: 1. Negative bilateral mammogram unchanged. 2. Recommend annual screening mammograms. BIRADS: 1-Negative FOLLOW UP: 1 Year Follow-up The CAD order checker packer processer was used.
== END 2022-11-15 09:04 | disposition home or self-care (01) ==
LOC: RAD 09:06
PROVIDERS: PCP Nurse Practitioner Family; Visit Provider Family Medicine Adult Medicine
DX: Z12.31 Encounter for screening mammogram for malignant neoplasm of breast (principal)
CPT/HCPCS: 77063; 77067

== ENCOUNTER → 2022-11-27 14:43 | Outpatient (BNVA) | payer MEDICARE, MEDICAID, SELFPAY | PROVIDERS: PCP Nurse Practitioner Family; Visit Provider Podiatrist Foot & Ankle Surgery | DX: M20.42 Other hammer toe(s) (acquired), left foot (principal) | CPT/HCPCS: 99213 ==

== ENCOUNTER 2023-02-22 14:12 | Observation (INO) | payer MEDICARE, MEDICAID, SELFPAY ==
[2023-02-22] VITALS (9 sets, daily range): BP systolic 108–154; BP diastolic 61–80; PULSE 60–86; RESP 12–20; TEMP 36.4–36.7; O2SAT 96–100
--- NOTE | 2023-02-22 14:32 | XRR_ITS ---
PROCEDURE INFORMATION: Exam: XR Chest Exam date and time: 02/22/2023 2:37 PM Age: 62 years old Clinical indication: Pain; Other: Unspecified; Additional info: Cp TECHNIQUE: Imaging protocol: Radiologic exam of the chest. Views: 1 view. COMPARISON: CT lung screening [id number] 06/01/2022 8:16 AM FINDINGS: Lungs: Unremarkable. No consolidation. Pleural spaces: Unremarkable. No pleural effusion. No pneumothorax. Heart/Mediastinum: Unremarkable. No cardiomegaly. Bones/joints: Unremarkable for age. XR/XR chest 1V portable [id number] IMPRESSION: Negative chest exam.
--- NOTE | 2023-02-22 14:32 | ECG_ITS ---
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 Measurements Intervals [place] Rate: 78 P: 66 AR: 178 QRS: 52 QRSD: 89 T: 67 QT: 367 QTc: 419 Interpretive Statements SINUS RHYTHM Compared to ECG 09/25/2018 14:13:22 No significant changes Electronically Signed On 02-23-2023 9:26:23 CDT by Nasir Koo M.D. [email or web address] [email or web address] health [facility].[employer]/store/OM/[id number]
[2023-02-22 14:47] LABS: Basophils # 0.1 10^3/uL (0.0-0.1); Basophils % 1.1 %; Eosinophils % 0.5 %; Hematocrit 22.8 % (37.0-47.0); Lymphocytes # 2.1 10^3/uL (0.8-4.8); Lymphocytes % 28.6 %; Mean Corpuscular HGB Conc 27.2 g/dL (30.0-36.0); Mean Corpuscular Hemoglobin 19.3 pg (28.0-34.0); Mean Platelet Volume 9.1 fL (7.4-10.4); Monocytes # 0.5 10^3/uL (0.2-0.9); Monocytes % 7.2 %; Neutrophils # 4.58 10^3/uL (1.8-7.7); Neutrophils % 62.1 %; Nucleated Red Blood Cells % 0 %; Platelet Count 378 10^3/cmm (130-400); Red Blood Count 3.21 10^6/uL (4.1-5.3); Red Cell Distribution Width 18.7 % (12.1-15.1); White Blood Count 7.4 10^3/uL (4.0-10.0)
[2023-02-22 14:51] LABS: Hemoglobin 6.2 g/dL (11.5-15.3)
[2023-02-22 15:04] LABS: Troponin(5th) Baseline 7 ng/L (0-10)
[2023-02-22 15:07] LABS: Alanine Aminotransferase 9 U/L (0-33); Albumin Level 3.9 g/dL (3.5-5.2); Alkaline Phosphatase 162 U/L (35-105); Anion Gap 18.3 (5-19); Aspartate Amino Transferase 12 U/L (0-32); Blood Urea Nitrogen 14 mg/dL (8-23); Calcium 10.8 mg/dL (8.5-10.5); Carbon Dioxide 19 mmol/L (22-29); Chloride 106 mmol/L (98-107); Globulin 2.6 g/dL (1.3-4.6); Glomerular Filtration Rate 72.9 mL/min (90-130); Glucose 131 mg/dL (65-115); Osmolality Calculated 292 mOsm/kg (285-295); Potassium 3.3 mmol/L (3.5-5.1); Sodium 140 mmol/L (136-145); Total Bilirubin 0.2 mg/dL (0.15-1.2); Total Protein 6.5 g/dL (6.6-8.7)
--- NOTE | 2023-02-22 15:29 | CT_ITS ---
WS: [id number] CT HEAD TECHNIQUE: Noncontrast CT of the head obtained from the skullbase to the vertex. CLINICAL INFORMATION: head injury COMPARISON: MRI 01/07/2020 DLP: 1109.[address] scans at [facility] use at least one of these dose optimization techniques: automated e xposure control; mA and/or kV adjustment per patient size (includes targeted exams where dose is matc hed to clinical indication); or iterative reconstruction. FINDINGS: No evidence of intracranial hemorrhage or mass effect. Ventricular system and basal cisterns are manning nt. Mild small vessel changes with moderate parenchymal volume loss. No extra-axial fluid collections . No evidence of mass or mass effect. Intracranial vascular calcification. Inspissated secretions in the left maxillary sinus. Mucosal thickening in the ethmoid air cells parti al opacification. IMPRESSION: 1. No evidence of intracranial hemorrhage or mass effect. 2. No acute intracranial findings.
[2023-02-22] MEDS: sodium chloride 0.9% 1,000 ML 999 ML IV (15:42)
--- NOTE | 2023-02-22 15:48 | W.ED.DIZZY ---
HPI - Dizziness General: Chief Complaint: Dizziness Stated Complaint: DIZZY/ SOB Time Seen by Provider: 02/22/23 14:41 Source: patient and EMS Mode of arrival: EMS Limitations: no limitations History of Present Illness: HPI Narrative: 62-year-old female who is here from [facility] she states that over the last week she has been feeling weak and having some dizziness along with some dyspnea on exertion states she did have a fall a week ago hit her head. She has had a history of anemia per [facility] she had a hemoglobin there in the sixes. She denies any blood in her stools denies any vomiting. Associated symptoms: Reports headache(s) and malaise; Denies chest pain, chills, nausea or vomiting Review of Systems Const: Reports: fatigue and malaise; Denies: fever(s) or chills ENMT: Denies: throat pain or dental pain Card: Denies: chest pain Resp: Denies: dyspnea GI: Denies: abdominal pain, nausea, vomiting or diarrhea Musc: Denies: neck pain or back pain Skin/Breast: Denies: rash Neuro: Reports: headache(s) PFSH ED PFSH: Medical History Allergic rhinitis Benign neoplasm of bone of hand Chronic tension headaches Constipation by delayed colonic transit COPD (chronic obstructive pulmonary disease) Depression Fibromyalgia GERD (gastroesophageal reflux disease) Hyperparathyroidism Insomnia disorder Kidney stones, calcium oxalate Nonunion after arthrodesis Osteoarthritis involving multiple joints on both sides of body Bilateral hands, arms, feet and knees Post traumatic stress disorder (PTSD) Vitamin D deficiency Surgical History History of hysterectomy History of tonsillectomy Postoperative state Family History Father Aneurysm Mother Cancer neck Social History Smoking and tobacco status: current every day smoker cigarettes Quit status (tobacco): not considering quitting Alcohol intake: former Substance/Drug Use: former Physical Exam Const: COMMON NORMALS: patient oriented x3 and healthy appearing HENMT: COMMON NORMALS: normocephalic and atraumatic HEAD & SCALP: normocephalic and atraumatic Neck/C-Spine: COMMON NORMALS: full ROM and supple Chest: COMMONS NORMALS: normal inspection of the chest and normal palpation of entire chest wall Resp: COMMON NORMALS: normal respiratory effort, No retractions, No use of accessory muscles and clear to auscultation bilaterally AUSCULTATION: clear to auscultation bilaterally Cardio: COMMON NORMALS: regular rate, regular rhythm and No murmurs present (Cardio) RATE: regular rate RHYTHM: regular rhythm GI: COMMON NORMALS: Normal to inspection, nondistended, normoactive bowel sounds present, Soft to palpation, non-tender and no masses PALPATION: Yes Soft to palpation Extremity: COMMON NORMALS: normal to inspection and full ROM Neuro: COMMON NORMALS: patient oriented x3, moves all extremities and no focal motor deficits Psych: COMMON NORMALS: mental status grossly normal, Normal thought process present and cooperative THOUGHT PROCESS: Normal thought process present Skin: COMMON NORMALS: no rashes or lesions noted and no wounds GENERAL SKIN EXAM: no rashes or lesions noted Course Vital Signs: Vital signs: Vital Signs Temperature 97.9 F 02/22/23 16:43 Pulse Rate 78 02/22/23 16:43 Respiratory Rate 18 02/22/23 16:43 Blood Pressure 134/64 02/22/23 16:43 Pulse Oximetry 96 02/22/23 16:43 MDM - Dizziness Medical Decision Making Patient presents here with she states weakness she has anemic likely causing symptoms she also has a UTI patient also tested positive for methamphetamines we will transfuse treat her UTI spoke to the hospitalist will admit at this time. Medical Records I reviewed the patient's medical records. Lab Data I reviewed the patient's lab results. 02/22/23 14:04 02/22/23 14:04 Radiology Impressions Chest X-Ray 02/22/23 14:32 IMPRESSION: Negative chest exam. Laboratory Results WBC 7.4 10^3/uL (4.0-10.0) 02/22/23 14:04 RBC 3.21 10^6/uL (4.1-5.3) L 02/22/23 14:04 Hgb 6.2 g/dL (11.5-15.3) L* 02/22/23 14:04 Hct 22.8 % (37.0-47.0) L 02/22/23 14:04 MCV 71.0 fl (81-99) L 02/22/23 14:04 MCH 19.3 pg (28.0-34.0) L 02/22/23 14:04 MCHC 27.2 g/dL (30.0-36.0) L 02/22/23 14:04 RDW 18.7 % (12.1-15.1) H 02/22/23 14:04 Plt Count 378 10^3/cmm (130-400) 02/22/23 14:04 MPV 9.1 fL (7.4-10.4) 02/22/23 14:04 Neut % (Auto) 62.1 % 02/22/23 14:04 Lymph % (Auto) 28.6 % 02/22/23 14:04 [place] % (Auto) 7.2 % 02/22/23 14:04 Eos % (Auto) 0.5 % 02/22/23 14:04 Baso % (Auto) 1.1 % 02/22/23 14:04 Neut # (Auto) 4.58 10^3/uL (1.8-7.7) 02/22/23 14:04 Lymph # (Auto) 2.1 10^3/uL (0.8-4.8) 02/22/23 14:04 [place] # (Auto) 0.5 10^3/uL (0.2-0.9) 02/22/23 14:04 Eos # (Auto) 0.0 10^3/uL (0.0-0.8) 02/22/23 14:04 Baso # (Auto) 0.1 10^3/uL (0.0-0.1) 02/22/23 14:04 Nucleated RBC % (auto) 0 % 02/22/23 14:04 Nucleated RBCs # 0.0 /100WBC 02/22/23 14:04 PT 13.50 SECONDS (12.1-14.9) 02/22/23 14:04 INR 1.00 (0.8-1.2) 02/22/23 14:04 Sodium 140 mmol/L (136-145) 02/22/23 14:04 Potassium 3.3 mmol/L (3.5-5.1) L 02/22/23 14:04 Chloride 106 mmol/L (98-107) 02/22/23 14:04 Carbon Dioxide 19 mmol/L (22-29) L 02/22/23 14:04 Anion Gap 18.3 (5-19) 02/22/23 14:04 BUN 14 mg/dL (8-23) 02/22/23 14:04 Creatinine 0.8 mg/dL (0.5-0.9) 02/22/23 14:04 GFR Calculation 72.9 mL/min (90-130) L 02/22/23 14:04 Glucose 131 mg/dL (65-115) H 02/22/23 14:04 Calculated Osmolality 292 mOsm/kg (285-295) 02/22/23 14:04 Calcium 10.8 mg/dL (8.5-10.5) H 02/22/23 14:04 Total Bilirubin 0.2 mg/dL (0.15-1.2) 02/22/23 14:04 AST 12 U/L (0-32) 02/22/23 14:04 ALT 9 U/L (0-33) 02/22/23 14:04 Alkaline Phosphatase 162 U/L (35-105) H 02/22/23 14:04 Troponin T Baseline 7 ng/L (0-10) 02/22/23 14:04 Troponin T 120 Minute 7.30 ng/L (0-10) 02/22/23 16:05 Delta Troponin T 0.30 ABS# (0-10) 02/22/23 16:05 Total Protein 6.5 g/dL (6.6-8.7) L 02/22/23 14:04 Albumin 3.9 g/dL (3.5-5.2) 02/22/23 14:04 Globulin 2.6 g/dL (1.3-4.6) 02/22/23 14:04 Urine Color Yellow (Yellow) 02/22/23 16:09 Urine Appearance Hazy (CLEAR) A 02/22/23 16:09 Urine pH 7 (5-7) 02/22/23 16:09 Ur Specific Boyd 1.005 (1.005-1.030) 02/22/23 16:09 Urine Protein Neg (Negative) 02/22/23 16:09 Urine Glucose (UA) Norm (Normal) 02/22/23 16:09 Urine Ketones Negative (Negative) 02/22/23 16:09 Urine Blood Trace (Negative) H 02/22/23 16:09 Urine Nitrate Positive (Negative) H 02/22/23 16:09 Urine Bilirubin Neg (Negative) 02/22/23 16:09 Urine Urobilinogen Norm mg/dL (Negative) 02/22/23 16:09 Ur Leukocyte Esterase 2+ (Negative) H 02/22/23 16:09 Urine RBC 10-15 /hpf (0-2) H 02/22/23 16:09 Urine WBC 55-80 /hpf (0-5) H 02/22/23 16:09 Ur Squamous Epith Cells 0-4 /hpf (0-5) H 02/22/23 16:09 Amorphous Sediment Not Reportable 02/22/23 16:09 Urine Bacteria 4+ /hpf (NONE) H 02/22/23 16:09 Urine Mucus 1+ /hpf 02/22/23 16:09 Urine Opiates Screen Negative ng/mL (Negative) 02/22/23 16:09 Ur Barbiturates Screen Negative ng/mL (Negative) 02/22/23 16:09 Ur Phencyclidine Scrn Negative ng/mL (Negative) 02/22/23 16:09 Ur Amphetamines Screen Positive ng/mL (Negative) H 02/22/23 16:09 U Benzodiazepines Scrn Negative ng/mL (Negative) 02/22/23 16:09 Urine Cocaine Screen Negative ng/mL (Negative) 02/22/23 16:09 U Marijuana (THC) Screen Negative ng/mL (Negative) 02/22/23 16:09 Ethyl Alcohol < 10 mg/dL (0-10) 02/22/23 14:04 Blood Type A Negative 02/22/23 14:56 Rho(D) Type Negative 02/22/23 14:56 Antibody Screen Negative 02/22/23 14:56 Crossmatch See Detail 02/22/23 14:56 EKG Data EKG 1: I personally reviewed and interpreted this EKG as follows: EKG interpretation date: 02/22/23 EKG interpretation time: 14:58 Interpretation: nsr hr [address] or t wave abnormalities qrs 89 qtc 400 Discharge Plan Discharge Patient Disposition: Admitted As Inpatient Clinical Impression: Anemia, Acute cystitis Condition: Stable Prescriptions: No Action cholecalciferol (vitamin D3) 25 mcg (1,000 unit) capsule 25 mcg PO DAILY (DME) Sole Supports See Rx Instructions .Route .MEDSUPPLY Qty: 1 0RF Rx Instructions: As directed baclofen 10 mg tablet 10 mg PO TID Qty: 90 0RF citalopram [Celexa] 20 mg tablet 40 mg PO DAILY 30 Days Qty: 60 0RF Rx Instructions: take with 40mg celexa. fluticasone propionate 50 mcg/actuation spray,suspension 1 spray intranasal BID PRN (Reason: allergy symptoms) Qty: 48 0RF Rx Instructions: administer into each nostril gabapentin 600 mg tablet 600 mg PO TID Qty: 90 0RF cetirizine [Zyrtec] 10 mg tablet 10 mg PO DAILY 30 Days Qty: 30 0RF citalopram [Celexa] 40 mg tablet 40 mg PO DAILY Rx Instructions: take with 20mg celexa. omeprazole 20 mg capsule,delayed release(DR/EC) 20 mg PO DAILY duloxetine 60 mg capsule,delayed release(DR/EC) 60 mg PO BID Referrals: Breonna Barnes FNP [Primary Care Provider] - Coding Level of Care Code ED Ignition Expert for Anum Ny
[2023-02-22 15:50] LABS: Alcohol Level < 10 mg/dL (0-10)
[2023-02-22] MEDS: nicotine 21 mg Patch 1 PATCH TRANSDERMA (16:12)
[2023-02-22] MEDS: morphine 4 mg/mL SDV 1 mL IVP (16:17)
[2023-02-22] MEDS: ondansetron 2 mg/ML SDV 2 mL 4 MG IVP (16:18)
--- NOTE | 2023-02-22 16:36 | ECG_ITS ---
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 Measurements Intervals [place] Rate: 70 P: 62 MN: 179 QRS: 47 QRSD: 91 T: 60 QT: 374 QTc: 404 Interpretive Statements SINUS RHYTHM Compared to ECG 02/22/2023 14:58:35 No significant changes Electronically Signed On 02-23-2023 9:29:58 CDT by Nasir Koo M.D. [email or web address] mary's medical center, ironton campusSidecar/store/OM/[id number]
[2023-02-22 16:40] LABS: Glucose Urine UA Norm (Normal); Ketones Urine Negative (Negative); Nitrate Urine Positive (Negative); Protein Urine Neg (Negative); Specific Gravity, Urine 1.005 (1.005-1.030); Urine Appearance Hazy (CLEAR); Urine Color Yellow (Yellow); pH Urine 7 (5-7)
[2023-02-22 16:41] LABS: Add Urine Microscopic? YES; Amphetamines Screen Urine Positive (Negative); Barbiturates Screen Urine Negative (Negative); Benzodiazepines Screen Urine Negative (Negative); Bilirubin Urine Neg (Negative); Blood Urine Trace (Negative); Cocaine Screen Urine Negative (Negative); Leukocyte Esterase Urine 2+ (Negative); Opiate Screen Urine Negative (Negative); PCP Screen Urine Negative (Negative); THC Screen Urine Negative (Negative); Urobilinogen Urine Norm (Negative)
[2023-02-22 16:45] LABS: Add Urine Culture? Yes; Bacteria Urine 4+ /hpf; Mucus Urine 1+ /hpf; Squamous Epithelial Cell Urine 0-4 /hpf (0-5); WBC Urine 55-80 /hpf (0-5)
--- NOTE | 2023-02-22 17:24 | P.HP_ITS ---
Providers/Chief Complaint Admitting Physician: Ayesha Blandon MD Primary Care Provider: REYES Woodruff Chief Complaint: DIZZY/ SOB History of Present Illness Alina Bridges is a 62 year old female with a past medical history of self- reported hepatitis B, COPD, chronic pain for which she is on multiple pain medications including NSAIDs, osteoarthritis, presenting to the emergency room today with chief complaints of generalized weakness. She went into see her primary care provider at [facility] earlier today where her hemoglobin was noted to be 6. Patient states that she has been feeling weak for a while and last week she nearly passed out and hit her head. She was sent into the emergency room due to severe anemia. Patient reports a past history of hepatitis B which was treated. She does not know if she was ever diagnosed with cirrhosis. She does have a history of bleeding gastric ulcer several years ago for which she had endoscopic evaluation. She is currently on NSAIDs, uses meloxicam frequently due to chronic pain. She is on omeprazole and reports taking this medication. She has not noticed any melena or hematemesis. No history of hemoptysis. No bleeding at any other site. Does not recall any recent trauma. She last required blood transfusion around the of her daughter she is convinced this is how she acquired hepatitis B at the time. Has a past history of alcohol use, denies drinking currently. She is positive for methamphetamines on her drug screen today. She is a poor historian, easily distracted in conversation, suspect this is related to recent drug use. She is alert awake oriented x 3. Review of Systems General: Reports: 10 or more systems reviewed and unremarkable except in HPI and below Const: Denies: fever(s), chills or body aches Eyes: Denies: change in vision, blurry vision or photophobia ENMT: Reports: hoarseness; Denies: throat pain, enlarged tonsils, odynophagia or nasal congestion Card: Denies: chest pain, palpitations, irregular heart rhythm, edema, swelling of feet/ankles, lightheadedness, pre-syncope, dyspnea on exertion or orthopnea Resp: Denies: dyspnea, productive cough, non-productive cough, wheezing, stridor, pain on inspiration, change in phlegm color, hemoptysis or chest congestion GI: Denies: abdominal pain, nausea, vomiting, hematemesis, coffee ground emesis, dysphagia, heartburn, diarrhea, constipation, GI cramping, change in stool character, hematochezia or melena : Denies: flank pain, difficulty voiding, dysuria, urinary frequency, urinary urgency, urinary hesitancy or hematuria Musc: Denies: neck pain, back pain, extremity pain, joint swelling, joint wa rmth or deformity Neuro: Denies: headache(s), numbness in extremities, weakness in extremities, sensory changes, difficulty walking, frequent falls, dizziness, vertigo, b ehavioral changes, Slurred speech present or seizure-like activity Psych: Denies: anxiety, depression, suicidal ideation or homicidal ideation Endo: Denies: polyuria, polydipsia, tired all the time, cold intolerance or hot flashes Minh/Lymph: Denies: easy bruising or easy bleeding Medications/Allergies Home Medications Medication Instructions Recorded Confirmed Last Taken Type cholecalciferol (vitamin D3) 25 25 mcg PO DAILY 03/17/20 02/22/23 09/15/21 History mcg (1,000 unit) capsule Sole Supports #1 ea 05/20/20 02/22/23 Unknown Rx citalopram 40 mg tablet (Celexa) 40 mg PO DAILY 09/15/21 02/22/23 09/15/21 History baclofen 10 mg tablet 10 mg PO TID body pain #90 tabs 11/01/22 02/22/23 Unknown Rx cetirizine 10 mg tablet (Zyrtec) 10 mg PO DAILY 30 days #30 tabs 11/01/22 02/22/23 Unknown Rx citalopram 20 mg tablet (Celexa) 40 mg PO DAILY 30 days #60 tabs 11/01/22 02/22/23 Unknown Rx fluticasone propionate 50 1 spray intranasal BID PRN allergy 11/01/22 02/22/23 Unknown Rx mcg/actuation nasal symptoms #48 grams spray,suspension gabapentin 600 mg tablet 600 mg PO TID #90 tabs 11/01/22 02/22/23 Unknown Rx duloxetine 60 mg capsule,delayed 60 mg PO BID 02/22/23 02/22/23 Unknown History release omeprazole 20 mg capsule,delayed 20 mg PO DAILY 02/22/23 02/22/23 Unknown History release Allergies Allergy/AdvReac Type Severity Reaction Status Date / Time codeine Allergy ALGY-Hives Verified 01/08/23 08:01 PFSH Acute PFSH: Medical History (Updated 02/22/23 @ 17:28 by Ayesha Blandon MD) Allergic rhinitis Benign neoplasm of bone of hand Chronic tension headaches Constipation by delayed colonic transit COPD (chronic obstructive pulmonary disease) Depression Fibromyalgia GERD (gastroesophageal reflux disease) Hepatitis B Hyperparathyroidism Insomnia disorder Kidney stones, calcium oxalate Nonunion after arthrodesis Osteoarthritis involving multiple joints on both sides of body Bilateral hands, arms, feet and knees Post traumatic stress disorder (PTSD) Vitamin D deficiency Surgical History History of hysterectomy History of tonsillectomy Postoperative state Family History Father Aneurysm Mother Cancer neck Social History Smoking and tobacco status: current every day smoker cigarettes Quit status (tobacco): not considering quitting Alcohol intake: former Substance/Drug Use: former Vitals/I&O/Wt Last Vital Signs Temp 97.9 F 02/22/23 16:43 Pulse 78 02/22/23 16:43 Resp 18 02/22/23 16:43 BP 134/64 02/22/23 16:43 Pulse Ox 96 02/22/23 16:43 02/22/23 02/22/23 02/22/23 06:59 14:59 22:59 Intake Total 0 / 0 Balance 0 / 0 Physical Exam Narrative: General: No acute distress, AO x3, easily distracted in conversation HEENT: PERRLA, pupils bilaterally equal and reactive, pallors not present Chest: Normal vesicular breath sounds, no added sounds, equal good air entry bilaterally CVS: S1-S2 regular, no murmurs, no tachycardia, no gallops, no rubs Abdomen: Soft, nontender, no organomegaly, bowel sounds present Neuro: No focal deficits, no facial deformity, AO x3, power 5/5 in all limbs Data 02/22/23 14:04 02/22/23 14:04 A&P Assessment and plan (1) Anemia: Anemia with hemoglobin of 6.2 Unknown chronicity. Previously compared to 2019 her hemoglobin was normal. Has multiple risk factors for gastric ulcer disease with NSAID use, prior history of bleeding ulcers. She has not had an endoscopy evaluation in a years. Fecal occult blood tested in the ER at bedside is negative. No history of melena or hematemesis currently Check iron level B12 folate and reticulocyte care/site production index Has a history of alcohol consumption and IV drug use. May have nutritional deficiency, noted cheilosis around her mouth Past history also notable for hepatitis B which patient reports. Will check hepatitis serology. If screens positive for hep B or C, will likely evaluate with liver ultrasound for possible cirrhosis as variceal bleed would be on the differential in that case. Currently hemodynamically stable. Check hemoglobin after 2 unit packed red blood cell transfusion that has been ordered from the emergency room DVT prophylaxis: Low risk currently, patient is ambulatory Full code Attestations Medical Necessity Statement*: Anticipate less than 2 midnight stay for symptomatic anemia, blood transfusion, hemoglobin monitoring. Coding Level of Care Code Acute Code for Chg Fwd Moderate MDM includes number and complexity of problems actively addressed during encounter, amount and/or complexity of data reviewed/ordered and described risk of complication, morbidity or mortality of management as documented Diagnoses Anemia D64.9
[2023-02-22 17:58] LABS: Hematocrit 23.3 % (37.0-47.0); Retic Production Index 0.82; Reticulocyte % 1.4 % (0.5-2.0)
[2023-02-22 18:15] LABS: Ferritin 8 ng/mL (15-150); Iron 12 ug/dL (37-145)
[2023-02-22 18:29] LABS: Vitamin B12 359 pg/mL (232-1245)
[2023-02-22 18:38] LABS: Folate Level 18.4 ng/mL (4.8-37.3)
[2023-02-22] MEDS: cefTRIAXone 1,000 MG in sodium chloride 0.9% (plus) 50 ML 100 MG IV (19:39)
[2023-02-22] MEDS: duloxetine 60 mg Capsule PO (19:39)
[2023-02-22] MEDS: pantoprazole DR 40 mg Tablet PO (20:16)
[2023-02-22] MEDS: gabapentin 300 mg Capsule 600 MG PO (20:16)
--- NOTE | 2023-02-22 20:32 | ECG_ITS ---
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 Measurements Intervals [place] Rate: 58 P: 62 MA: 212 QRS: 38 QRSD: 94 T: 53 QT: 414 QTc: 408 Interpretive Statements SINUS BRADYCARDIA WITH FIRST DEGREE AV BLOCK MINIMAL ST DEPRESSION [0.025+ mV ST DEPRESSION] Compared to ECG 02/22/2023 16:36:17 First degree AV block now present ST (T wave) deviation now present Sinus rhythm no longer present Electronically Signed On 02-23-2023 9:29:27 CDT by Nasir Koo M.D. [email or web address], [email or web address].[email or web address].[employer]/store/OM/[id number]
[2023-02-22 21:19] LABS: Hepatitis A Antibody IgM Non-Reactive (Nonreactive); Hepatitis B Core AB, Total Non-Reactive (Nonreactive); Hepatitis B Surface AB 3.5 (11.5-1000); Hepatitis B Surface Antigen Non-Reactive (Nonreactive); Hepatitis C Virus Antibody Reactive (Nonreactive)
--- NOTE | 2023-02-22 22:18 | PC.NURSE ---
STUDENT SERVICES REP stated that pt stated having a pocket knife in her purse, this nurse spoke with pt and pt agreed to give pocket knife to be locked up. while pt was looking for pocket knife, pt exhibited behavior indicative to this nurse that pt is concealing something. pt agreed to have the entire purse locked up.
[2023-02-23] VITALS (10 sets, daily range): BP systolic 107–140; BP diastolic 55–68; PULSE 55–75; RESP 16–18; TEMP 36.1–36.8; O2SAT 93–99
[2023-02-23] MEDS: sodium chloride 0.9% 100 mL Bag 50 ML IV (01:20)
[2023-02-23] MEDS: acetaminophen 325 mg Tablet 650 MG PO (01:23)
[2023-02-23] MEDS: baclofen 10 mg Tablet PO (01:24)
[2023-02-23 06:38] LABS: Basophils # 0.1 10^3/uL (0.0-0.1); Basophils % 1.6 %; Eosinophils # 0.1 10^3/uL (0.0-0.8); Eosinophils % 1.5 %; Hematocrit 32.8 % (37.0-47.0); Hemoglobin 9.5 g/dL (11.5-15.3); Lymphocytes # 1.4 10^3/uL (0.8-4.8); Lymphocytes % 23.4 %; Mean Corpuscular Hemoglobin 21.6 pg (28.0-34.0); Mean Corpuscular Volume 74.5 fl (81-99); Mean Platelet Volume 9.1 fL (7.4-10.4); Monocytes # 0.6 10^3/uL (0.2-0.9); Monocytes % 10.4 %; Neutrophils # 3.87 10^3/uL (1.8-7.7); Neutrophils % 62.8 %; Nucleated Red Blood Cells % 0 %; Platelet Count 325 10^3/cmm (130-400); White Blood Count 6.2 10^3/uL (4.0-10.0)
[2023-02-23 07:00] LABS: Alanine Aminotransferase 9 U/L (0-33); Albumin Level 3.4 g/dL (3.5-5.2); Alkaline Phosphatase 152 U/L (35-105); Anion Gap 11.8 (5-19); Aspartate Amino Transferase 15 U/L (0-32); Blood Urea Nitrogen 11 mg/dL (8-23); Calcium 10.5 mg/dL (8.5-10.5); Carbon Dioxide 24 mmol/L (22-29); Chloride 108 mmol/L (98-107); Globulin 2.6 g/dL (1.3-4.6); Glomerular Filtration Rate 101.6 mL/min (90-130); Glucose 91 mg/dL (65-115); Osmolality Calculated 289 mOsm/kg (285-295); Potassium 3.8 mmol/L (3.5-5.1); Sodium 140 mmol/L (136-145); Total Bilirubin 0.6 mg/dL (0.15-1.2)
[2023-02-23 07:08] LABS: HIV 1 & 2 Antibody Non-Reactive (Non-Reactiv); HIV 1 & 2 Antigen Non-Reactive (Non-Reactiv)
[2023-02-23] MEDS: pantoprazole DR 40 mg Tablet PO (09:53)
[2023-02-23] MEDS: duloxetine 60 mg Capsule PO (09:53)
[2023-02-23] MEDS: gabapentin 300 mg Capsule 600 MG PO (09:53)
--- NOTE | 2023-02-23 11:38 | PM.DCS ---
Discharge Providers Date of Admission: 02/22/23 16:28 Date of Discharge: February 23, 2023 Attending Provider at Admission: Ayesha Blandon MD Attending Provider at Discharge: Ayesha Blandon MD Primary Care Provider: REYES Woodruff Diagnoses at Discharge Discharge Diagnosis (1) Anemia: Status: Acute Reason for Visit Reason for Visit: DIZZY/ SOB Hospital Course Hospital Course Alina Bridges is a 62 year old female with a past medical history of self-reported hepatitis B, COPD, chronic pain for which she is on multiple pain medications including NSAIDs, osteoarthritis, presenting to the emergency room today with chief complaints of generalized weakness.? She went into see her primary care provider at [facility] earlier today where her hemoglobin was noted to be 6.? Patient states that she has been feeling weak for a while and last week she nearly passed out and hit her head. She was sent into the emergency room due to severe anemia.Patient reports a past history of hepatitis B which was treated.? She does not know if she was ever diagnosed with cirrhosis or varices.? She does have a history of bleeding gastric ulcer several years ago for which she had endoscopic evaluation.?This was over 10 years ago. She is currently on NSAIDs, uses meloxicam frequently due to chronic pain.? She is on omeprazole and reports taking this medication. She has not noticed any melena or hematemesis.? Hemoccult was negative in the ER. No history of hemoptysis.? No bleeding at any other site.? Her last blood transfusion was several years ago for post hemorrhage when her daughter was born. Her Hb was 6.2, she received blood transfuion with2 PRBC which improved Hb to 9.5 this morning. there are no signs of active bleeding. She remained hemodynamically stable. She has evidence of iron deficiency on labs for which iron and MV supplements were added. Incidentally hep C screen +, PCR pending which may be followed up with her PCP. Physical Exam Narrative: General: No acute distress, AO x3 HEENT: PERRLA, pupils bilaterally equal and reactive, pallors not present Chest: Normal vesicular breath sounds, no added sounds, equal good air entry bilaterally CVS: S1-S2 regular, no murmurs, no tachycardia, no gallops, no rubs Abdomen: Soft, nontender, no organomegaly, bowel sounds present Neuro: No focal deficits, no facial deformity, AO x3, power 5/5 in all limbs Discharge Data Studies Completed and Pending Completed Studies During Hospitalization Category Date Time Status CT head wo con* [id number] Stat Cat Scan 02/22/23 15:29 Completed XR chest 1V portable [id number] Stat Exams 02/22/23 14:32 Completed Pending at discharge Category Date Time Status Chlamydia / Gonorrhea Panel Routine Lab 02/22/23 17:21 Uncollected Hepatitis C RNA Viral Load Qnt Routine Lab 02/22/23 21:48 Received Urine Culture Stat Lab 02/22/23 16:09 Received Radiology Impressions Chest X-Ray 02/22/23 14:32 IMPRESSION: Negative chest exam. Laboratory Results WBC 6.2 10^3/uL (4.0-10.0) 02/23/23 05:58 RBC 4.40 10^6/uL (4.1-5.3) 02/23/23 05:58 Hgb 9.5 g/dL (11.5-15.3) L D 02/23/23 05:58 Hct 32.8 % (37.0-47.0) L D 02/23/23 05:58 MCV 74.5 fl (81-99) L 02/23/23 05:58 MCH 21.6 pg (28.0-34.0) L D 02/23/23 05:58 MCHC 29.0 g/dL (30.0-36.0) L D 02/23/23 05:58 RDW 20.0 % (12.1-15.1) H 02/23/23 05:58 Plt Count 325 10^3/cmm (130-400) 02/23/23 05:58 MPV 9.1 fL (7.4-10.4) 02/23/23 05:58 Neut % (Auto) 62.8 % 02/23/23 05:58 Lymph % (Auto) 23.4 % 02/23/23 05:58 [place] % (Auto) 10.4 % 02/23/23 05:58 Eos % (Auto) 1.5 % 02/23/23 05:58 Baso % (Auto) 1.6 % 02/23/23 05:58 Reticulocyte % (Auto) 1.4 % (0.5-2.0) 02/22/23 14:04 Neut # (Auto) 3.87 10^3/uL (1.8-7.7) 02/23/23 05:58 Lymph # (Auto) 1.4 10^3/uL (0.8-4.8) 02/23/23 05:58 [place] # (Auto) 0.6 10^3/uL (0.2-0.9) 02/23/23 05:58 Eos # (Auto) 0.1 10^3/uL (0.0-0.8) 02/23/23 05:58 Baso # (Auto) 0.1 10^3/uL (0.0-0.1) 02/23/23 05:58 Nucleated RBC % (auto) 0 % 02/23/23 05:58 Nucleated RBCs # 0.0 /100WBC 02/23/23 05:58 Retic Production Index 0.82 02/22/23 14:04 PT 13.50 SECONDS (12.1-14.9) 02/22/23 14:04 INR 1.00 (0.8-1.2) 02/22/23 14:04 Sodium 140 mmol/L (136-145) 02/23/23 05:58 Potassium 3.8 mmol/L (3.5-5.1) 02/23/23 05:58 Chloride 108 mmol/L (98-107) H 02/23/23 05:58 Carbon Dioxide 24 mmol/L (22-29) 02/23/23 05:58 Anion Gap 11.8 (5-19) 02/23/23 05:58 BUN 11 mg/dL (8-23) 02/23/23 05:58 Creatinine 0.6 mg/dL (0.5-0.9) 02/23/23 05:58 GFR Calculation 101.6 mL/min (90-130) 02/23/23 05:58 Glucose 91 mg/dL (65-115) 02/23/23 05:58 Calculated Osmolality 289 mOsm/kg (285-295) 02/23/23 05:58 Calcium 10.5 mg/dL (8.5-10.5) 02/23/23 05:58 Iron 12 ug/dL (37-145) L 02/22/23 14:04 Ferritin 8 ng/mL (15-150) L 02/22/23 14:04 Total Bilirubin 0.6 mg/dL (0.15-1.2) 02/23/23 05:58 AST 15 U/L (0-32) 02/23/23 05:58 ALT 9 U/L (0-33) 02/23/23 05:58 Alkaline Phosphatase 152 U/L (35-105) H 02/23/23 05:58 Troponin T Baseline 7 ng/L (0-10) 02/22/23 14:04 Troponin T 120 Minute 7.30 ng/L (0-10) 02/22/23 16:05 Delta Troponin T 0.30 ABS# (0-10) 02/22/23 16:05 Troponin T Hi Sens 6Hr 8.90 ng/L (0-10) 02/22/23 20:39 Troponin T Hi Sens 6Hr Delta 1.90 ng/L (0-12) 02/22/23 20:39 Total Protein 6.0 g/dL (6.6-8.7) L 02/23/23 05:58 Albumin 3.4 g/dL (3.5-5.2) L 02/23/23 05:58 Globulin 2.6 g/dL (1.3-4.6) 02/23/23 05:58 Vitamin B12 359 pg/mL (232-1245) 02/22/23 14:04 Folate 18.4 ng/mL (4.8-37.3) 02/22/23 14:04 Urine Color Yellow (Yellow) 02/22/23 16:09 Urine Appearance Hazy (CLEAR) A 02/22/23 16:09 Urine pH 7 (5-7) 02/22/23 16:09 Ur Specific [place] 1.005 (1.005-1.030) 02/22/23 16:09 Urine Protein Neg (Negative) 02/22/23 16:09 Urine Glucose (UA) Norm (Normal) 02/22/23 16:09 Urine Ketones Negative (Negative) 02/22/23 16:09 Urine Blood Trace (Negative) H 02/22/23 16:09 Urine Nitrate Positive (Negative) H 02/22/23 16:09 Urine Bilirubin Neg (Negative) 02/22/23 16:09 Urine Urobilinogen Norm mg/dL (Negative) 02/22/23 16:09 Ur Leukocyte Esterase 2+ (Negative) H 02/22/23 16:09 Urine RBC 10-15 /hpf (0-2) H 02/22/23 16:09 Urine WBC 55-80 /hpf (0-5) H 02/22/23 16:09 Ur Squamous Epith Cells 0-4 /hpf (0-5) H 02/22/23 16:09 Amorphous Sediment Not Reportable 02/22/23 16:09 Urine Bacteria 4+ /hpf (NONE) H 02/22/23 16:09 Urine Mucus 1+ /hpf 02/22/23 16:09 Urine Opiates Screen Negative ng/mL (Negative) 02/22/23 16:09 Ur Barbiturates Screen Negative ng/mL (Negative) 02/22/23 16:09 Ur Phencyclidine Scrn Negative ng/mL (Negative) 02/22/23 16:09 Ur Amphetamines Screen Positive ng/mL (Negative) H 02/22/23 16:09 U Benzodiazepines Scrn Negative ng/mL (Negative) 02/22/23 16:09 Urine Cocaine Screen Negative ng/mL (Negative) 02/22/23 16:09 U Marijuana (THC) Screen Negative ng/mL (Negative) 02/22/23 16:09 Ethyl Alcohol < 10 mg/dL (0-10) 02/22/23 14:04 Hepatitis A IgM Ab Non-reactive (Nonreactive) 02/22/23 14:04 Hep Bs Antigen Non-reactive (Nonreactive) 02/22/23 14:04 Hep Bs Antibody 3.5 (11.5-1000) L 02/22/23 14:04 Hep B Core Total Ab Non-reactive (Nonreactive) 02/22/23 14:04 Hepatitis C Antibody Reactive (Nonreactive) H 02/22/23 14:04 HIV 1&2 Ab & HIV 1 Ag Non-reactive (Non-Reactiv) 02/23/23 05:58 HIV 1&2 Antibody Non-reactive (Non-Reactiv) 02/23/23 05:58 Blood Type A Negative 02/22/23 14:56 Rho(D) Type Negative 02/22/23 14:56 Antibody Screen Negative 02/22/23 14:56 Crossmatch See Detail 02/22/23 14:56 Vitals Last Vital Signs Temp 98.2 F 02/23/23 07:32 Pulse 55 L 02/23/23 07:32 Resp 18 02/23/23 07:32 BP 121/67 02/23/23 07:32 Pulse Ox 94 02/23/23 07:32 O2 Del Method Room Air 02/23/23 07:32 Discharge Plan Discharge Patient Disposition: Home Condition: Stable Prescriptions: New pantoprazole 40 mg Tablet,Delayed Release (Dr/Ec) 40 mg PO BID 30 Days Qty: 60 0RF ferrous sulfate 325 mg (65 mg iron) tablet 325 mg PO DAILY 30 Days Qty: 30 0RF multivitamin [Daily Multi-Vitamin] Tablet 1 tab PO DAILY Qty: 90 0RF Continued cholecalciferol (vitamin D3) 25 mcg (1,000 unit) capsule 25 mcg PO DAILY (DME) Sole Supports See Rx Instructions .Route .MEDSUPPLY Qty: 1 0RF Rx Instructions: As directed baclofen 10 mg tablet 10 mg PO TID Qty: 90 0RF citalopram [Celexa] 20 mg tablet 40 mg PO DAILY 30 Days Qty: 60 0RF Rx Instructions: take with 40mg celexa. fluticasone propionate 50 mcg/actuation spray,suspension 1 spray intranasal BID PRN (Reason: allergy symptoms) Qty: 48 0RF Rx Instructions: administer into each nostril gabapentin 600 mg tablet 600 mg PO TID Qty: 90 0RF cetirizine [Zyrtec] 10 mg tablet 10 mg PO DAILY 30 Days Qty: 30 0RF citalopram [Celexa] 40 mg tablet 40 mg PO DAILY Rx Instructions: take with 20mg celexa. duloxetine 60 mg capsule,delayed release(DR/EC) 60 mg PO BID Discontinued omeprazole 20 mg capsule,delayed release(DR/EC) 20 mg PO DAILY Discharge Orders: Discharge Order (Routine); Ordered 02/23/23 Ordered By: Ayesha Blandon Referrals: Breonna Barnes FNP [Primary Care Provider] - 02/27/23 2:50 pm Discharge Diet: Usual diet Discharge Activity: Resume usual activity Patient Instructions: Anemia, Iron Supplements (By mouth), Pantoprazole (By mouth), Opioid Safety Discharge Attestations Time Spent in Discharge Care*: greater than 30 min Quality Metrics Clinical Quality Measures [ No reported AMI, CVA or VTE this stay] Coding Level of Care Code Acute Code for Chg Fwd Diagnoses Anemia D64.9
[2023-02-24 12:28] LABS: HEP C RNA Viral Load Quant <1.18 NOT DETECTED Log IU/mL (NOT DETECTED); HEP C RNA Viral Load Quant <15 NOT DETECTED IU/mL (NOT DETECTED)
== END 2023-02-23 13:51 | disposition home or self-care (01) ==
LOC: ER 17:04 → MEDSURG 02-23 00:26
PROVIDERS: Admitting Provider Student in an Organized Health Care Education/Training Program; Emergency Provider Emergency Medicine; PCP Nurse Practitioner Family; Visit Provider Student in an Organized Health Care Education/Training Program
DX: D64.9 Anemia, unspecified (principal); N30.00 Acute cystitis without hematuria; J44.9 Chronic obstructive pulmonary disease, unspecified; I44.0 Atrioventricular block, first degree; F17.210 Nicotine dependence, cigarettes, uncomplicated; Z79.899 Other long term (current) drug therapy
CPT/HCPCS: 36415; 36430; 70450; 71045; 80053; 80306; 80307; 81001; 82607; 82728; 82746; 83540; 84484; 85014; 85025; 85045; 85610; 86705; 86706; 86709; 86803; 86850; 86900; 86920; 87077; 87086; 87186; 87340; 87522; 87806; 93005; 96361; 96374; 96375; 99285; G0378; J0696; J2270; J2405; J7030; P9016

== ENCOUNTER 2023-05-14 13:37 | Oncology outpatient (recurring) (ONCR) | payer MEDICARE, MEDICAID, SELFPAY | END 2023-05-15 23:59 | disposition home or self-care (01) | PROVIDERS: PCP Nurse Practitioner Family; Visit Provider Internal Medicine Medical Oncology | DX: D64.9 Anemia, unspecified (principal); E21.3 Hyperparathyroidism, unspecified; Z79.899 Other long term (current) drug therapy | CPT/HCPCS: 36415; 80053; 81001; 82607; 82728; 82746; 83010; 83540; 83550; 83615; 85025; 86880; 99205 ==

== ENCOUNTER 2023-06-21 11:49 | Oncology outpatient (recurring) (ONCR) | payer MEDICARE, MEDICAID, SELFPAY ==
[2023-06-19 18:16] LABS: Basophils # 0.1 10^3/uL (0.0-0.1); Basophils % 0.4 %; Eosinophils % 0.1 %; Hematocrit 45.7 % (36-47); Lymphocytes # 1.7 10^3/uL (0.8-4.8); Lymphocytes % 12.7 %; Mean Corpuscular HGB Conc 32.8 g/dL (30-55); Mean Corpuscular Hemoglobin 29.5 pg (27-33); Mean Corpuscular Volume 89.8 fl (85-98); Mean Platelet Volume 9.4 fL (7.4-10.4); Monocytes # 0.5 10^3/uL (0.2-0.9); Monocytes % 3.7 %; Neutrophils # 11.05 10^3/uL (1.8-7.7); Neutrophils % 82.4 %; Nucleated Red Blood Cells % 0 %; Platelet Count 477 10^3/cmm (157-399); Red Blood Count 5.09 10^6/uL (3.85-5.65); Red Cell Distribution Width 13.2 % (12.1-15.1)
[2023-06-19 18:19] LABS: Alanine Aminotransferase 10 U/L (0-33); Albumin Level 4.8 g/dL (3.5-5.2); Alkaline Phosphatase 238 U/L (35-105); Anion Gap 20.6 (5-19); Aspartate Amino Transferase 16 U/L (0-32); Blood Urea Nitrogen 14 mg/dL (8-23); Carbon Dioxide 25 mmol/L (22-29); Chloride 95 mmol/L (98-107); Ferritin 21 ng/mL (15-150); Globulin 3.5 g/dL (1.3-4.6); Glomerular Filtration Rate 45.7 mL/min (90-130); Glucose 108 mg/dL (65-115); Iron 68 ug/dL (37-145); Osmolality Calculated 285 mOsm/kg (285-295); Percent Saturation 15.8 % (20-50); Potassium 3.6 mmol/L (3.5-5.1); Sodium 137 mmol/L (136-145); Total Bilirubin 0.3 mg/dL (0.15-1.2); Total Iron Binding Capacity 430 mcg/dl; Total Protein 8.3 g/dL (6.6-8.7); Unsaturated Iron Binding 362 ug/dL (112-347)
[2023-06-19 18:34] LABS: Vitamin B12 463 pg/mL (232-1245)
[2023-06-19 18:46] LABS: Folate Level 19.2 ng/mL (4.8-37.3)
[2023-06-19 18:48] LABS: Calcium 14.7 mg/dL (8.5-10.5)
[2023-06-19 22:46] LABS: Reticulocyte % 1.3 % (0.5-2.0)
[2023-06-21 12:11] VITALS: BP 124/74; PULSE 100; RESP 20; TEMP 36.6; O2SAT 96
[2023-06-21] MEDS: sodium chloride 0.9% 1,000 ML 999 ML IV (12:24)
[2023-06-21 12:42] LABS: Calcium 13.1 mg/dL (8.5-10.5)
[2023-06-22 18:09] LABS: Soluble Transferrin Receptor 2.24 mg/L (0.76-1.76)
[2023-06-24 07:54] LABS: Methylmalonic Acid 566 nmol/L (87-318)
== END 2023-07-15 23:59 | disposition home or self-care (01) ==
PROVIDERS: Internal Medicine; PCP Nurse Practitioner Family; Visit Provider Radiology Radiation Oncology
DX: D16.10 Benign neoplasm of short bones of unspecified upper limb (principal); E87.5 Hyperkalemia
CPT/HCPCS: 36415; 80053; 82310; 82607; 82728; 82746; 83540; 83550; 83921; 84238; 84443; 85025; 85045; 96365; 99213; J7030

== ENCOUNTER → 2023-06-22 08:57 | Outpatient (BNVA) | payer MEDICARE, MEDICAID, SELFPAY | PROVIDERS: PCP Nurse Practitioner Family; Visit Provider Surgery | DX: D64.9 Anemia, unspecified (principal); E83.52 Hypercalcemia; R74.8 Abnormal levels of other serum enzymes | CPT/HCPCS: 99204; 99214 ==

== ENCOUNTER 2023-06-25 12:46 | Outpatient (CLI) | payer MEDICARE, MEDICAID, SELFPAY ==
[2023-06-25 13:42] LABS: Calcium 10.6 mg/dL (8.5-10.5)
== END 2023-06-25 12:47 | disposition home or self-care (01) ==
PROVIDERS: PCP Nurse Practitioner Family; Visit Provider Internal Medicine
DX: E83.52 Hypercalcemia (principal)
CPT/HCPCS: 36415; 82310

== ENCOUNTER → 2023-08-31 11:27 | Outpatient (BNVA) | payer MEDICARE, MEDICAID, SELFPAY | PROVIDERS: PCP Nurse Practitioner Family; Visit Provider Internal Medicine | DX: E55.9 Vitamin D deficiency, unspecified (principal); E21.0 Primary hyperparathyroidism; R74.8 Abnormal levels of other serum enzymes; C73 Malignant neoplasm of thyroid gland; G47.00 Insomnia, unspecified | CPT/HCPCS: 36415; 82306; 82310; 83970; 84439; 84443; 99213; 99214 ==

== ENCOUNTER 2023-09-27 09:48 | Oncology outpatient (recurring) (ONCR) | payer MEDICARE, MEDICAID, SELFPAY ==
[2023-09-25 15:26] LABS: Basophils # 0.1 10^3/uL (0.0-0.1); Basophils % 0.9 %; Eosinophils # 0.1 10^3/uL (0.0-0.8); Eosinophils % 1.1 %; Hematocrit 32.9 % (36-47); Lymphocytes # 2.2 10^3/uL (0.8-4.8); Lymphocytes % 27.6 %; Mean Corpuscular HGB Conc 31.9 g/dL (30-55); Mean Corpuscular Hemoglobin 29.2 pg (27-33); Mean Corpuscular Volume 91.4 fl (85-98); Mean Platelet Volume 9.3 fL (7.4-10.4); Monocytes # 0.7 10^3/uL (0.2-0.9); Monocytes % 8.1 %; Neutrophils % 62.1 %; Nucleated Red Blood Cells % 0 %; Platelet Count 380 10^3/cmm (157-399); Red Cell Distribution Width 14.7 % (12.1-15.1); White Blood Count 8.05 10^3/uL (3.29-11.43)
[2023-09-25 15:51] LABS: Alanine Aminotransferase 10 U/L (0-33); Albumin Level 3.9 g/dL (3.5-5.2); Alkaline Phosphatase 138 U/L (35-105); Anion Gap 18.6 (5-19); Aspartate Amino Transferase 18 U/L (0-32); Blood Urea Nitrogen 13 mg/dL (8-23); Calcium 8.7 mg/dL (8.5-10.5); Carbon Dioxide 22 mmol/L (22-29); Chloride 104 mmol/L (98-107); Ferritin 12 ng/mL (15-150); Globulin 2.7 g/dL (1.3-4.6); Glomerular Filtration Rate 63.4 mL/min (90-130); Glucose 138 mg/dL (65-115); Iron 24 ug/dL (37-145); Osmolality Calculated 294 mOsm/kg (285-295); Percent Saturation 6.3 % (20-50); Potassium 3.6 mmol/L (3.5-5.1); Sodium 141 mmol/L (136-145); Total Bilirubin 0.3 mg/dL (0.15-1.2); Total Iron Binding Capacity 380 mcg/dl; Total Protein 6.6 g/dL (6.6-8.7); Unsaturated Iron Binding 356 ug/dL (112-347)
[2023-09-25 16:06] LABS: Vitamin B12 400 pg/mL (232-1245)
[2023-09-25 16:07] LABS: Folate Level 18.5 ng/mL (4.8-37.3)
[2023-09-28 13:53] LABS: Methylmalonic Acid 809 nmol/L (87-318)
== END 2023-10-14 23:59 | disposition home or self-care (01) ==
PROVIDERS: Internal Medicine; PCP Nurse Practitioner Family; Visit Provider Radiology Radiation Oncology
DX: D64.9 Anemia, unspecified (principal); E55.9 Vitamin D deficiency, unspecified
CPT/HCPCS: 36415; 80053; 82607; 82728; 82746; 83540; 83550; 83921; 85025; 99214

== ENCOUNTER 2023-11-13 10:42 | Outpatient (CLI) | payer MEDICARE, MEDICAID, SELFPAY ==
[2024-09-18 09:46] VITALS: BP 124/87; BMI 24.0
[2024-11-12 11:18] LABS: Basophils # 0.1 10^3/uL (0.0-0.1); Basophils % 0.9 %; Eosinophils # 0.2 10^3/uL (0.0-0.8); Eosinophils % 1.8 %; Hematocrit 44.2 % (36-47); Lymphocytes # 1.9 10^3/uL (0.8-4.8); Lymphocytes % 18.1 %; Mean Corpuscular HGB Conc 32.6 g/dL (30-55); Mean Corpuscular Hemoglobin 31.5 pg (27-33); Mean Corpuscular Volume 96.7 fl (85-98); Mean Platelet Volume 9.2 fL (7.4-10.4); Monocytes # 0.8 10^3/uL (0.2-0.9); Monocytes % 7.8 %; Neutrophils # 7.48 10^3/uL (1.8-7.7); Neutrophils % 70.8 %; Nucleated Red Blood Cells % 0 %; Platelet Count 368 10^3/cmm (157-399); Red Blood Count 4.57 10^6/uL (3.85-5.65); Red Cell Distribution Width 12.9 % (12.1-15.1); White Blood Count 10.56 10^3/uL (3.29-11.43)
[2024-11-12 11:29] LABS: Bilirubin Urine Negative (Negative); Blood Urine 1+ (Negative); Glucose Urine UA Negative (Normal); Ketones Urine Negative (Negative); Leukocyte Esterase Urine 3+ (Negative); Nitrate Urine Positive (Negative); Protein Urine 1+ (Negative); Specific Gravity, Urine 1.015 (1.005-1.030); Urine Appearance Cloudy (CLEAR); Urine Color Yellow (Yellow)
[2024-11-12 11:30] LABS: Alanine Aminotransferase 7 U/L (0-33); Albumin Level 4.2 g/dL (3.5-5.2); Alkaline Phosphatase 137 U/L (35-105); Anion Gap 16.6 (5-19); Aspartate Amino Transferase 12 U/L (0-32); Blood Urea Nitrogen 13 mg/dL (8-23); Calcium 9.7 mg/dL (8.5-10.5); Carbon Dioxide 29 mmol/L (22-29); Chloride 98 mmol/L (98-107); Globulin 3.3 g/dL (1.3-4.6); Glomerular Filtration Rate 84.5 mL/min (90-130); Glucose 97 mg/dL (65-115); Osmolality Calculated 290 mOsm/kg (285-295); Potassium 3.6 mmol/L (3.5-5.1); Sodium 140 mmol/L (136-145); Total Bilirubin 0.2 mg/dL (0.15-1.2); Total Protein 7.5 g/dL (6.6-8.7)
[2024-11-12 11:31] LABS: Add Urine Microscopic? YES; Bacteria Urine 3+ /hpf; Hyaline Casts Urine 0.81 /lpf; RBC Urine 21-50 /hpf (0-2); WBC Urine >100 /hpf (0-5)
[2024-11-12 11:42] LABS: Add Urine Culture? Yes
== END 2023-11-13 10:43 | disposition home or self-care (01) ==
LOC: LAB 11-14 15:46
PROVIDERS: PCP Nurse Practitioner Family; Visit Provider Nurse Practitioner
DX: M19.012 Primary osteoarthritis, left shoulder (principal)
CPT/HCPCS: 36415; 80053; 81001; 85025

== ENCOUNTER 2023-11-30 10:43 | Outpatient (CLI) | payer MEDICARE, MEDICAID, SELFPAY ==
--- NOTE | 2023-11-30 10:51 | US_ITS ---
WS: [id number] THYROID ULTRASOUND HISTORY: THYROID CANCER COMPARISON: None available. Right lobe: 1.3 cm x 1.7 cm x 3.6 cm (w x ap x l). Volume: 3.8 cm3. Subcentimeter colloid cyst. No solid mass. Left lobe: 1.6 cm x 1.7 cm x 4.2 cm (w x ap x l). Volume: 5.3 cm3. Subcentimeter colloid cyst. No mass. Isthmus: 0.4 cm. US/US thyroid [id number] IMPRESSION: Bilateral subcentimeter colloid cysts. No masses.
== END 2023-11-30 10:44 | disposition home or self-care (01) ==
LOC: RAD 10:43
PROVIDERS: PCP Nurse Practitioner Family; Visit Provider Otolaryngology
DX: C73 Malignant neoplasm of thyroid gland (principal)
CPT/HCPCS: 76536

== ENCOUNTER 2023-12-11 13:56 | Inpatient (IN) | payer MEDICARE, MEDICAID, SELFPAY ==
[2023-12-11 14:08] VITALS: BP 143/77; PULSE 94; RESP 16; TEMP 36.8; O2SAT 94
[2023-12-11 15:53] LABS: Urine Appearance Slightly Cloudy (CLEAR); Urine Color Yellow (Yellow); pH Urine 6.5 (5-7)
[2023-12-11 15:54] LABS: Add Urine Microscopic? YES; Bilirubin Urine Neg (Negative); Blood Urine 2+ (Negative); Glucose Urine UA Norm (Normal); Ketones Urine Negative (Negative); Leukocyte Esterase Urine 2+ (Negative); Nitrate Urine Positive (Negative); Protein Urine Neg (Negative); Urobilinogen Urine Norm (Negative)
[2023-12-11 16:03] LABS: Amphetamines Screen Urine Positive (Negative); Barbiturates Screen Urine Negative (Negative); Benzodiazepines Screen Urine Negative (Negative); Cocaine Screen Urine Negative (Negative); Opiate Screen Urine Negative (Negative); PCP Screen Urine Negative (Negative); RBC Urine 0-4 /hpf (0-2); THC Screen Urine Negative (Negative); Transitional Epi Cells Urine 0-4 /hpf
[2023-12-11 16:04] LABS: Add Urine Culture? Yes; Bacteria Urine 2+ /hpf; Squamous Epithelial Cell Urine 0-4 /hpf (0-5)
[2023-12-11 16:12] LABS: Basophils # 0.1 10^3/uL (0.0-0.1); Basophils % 0.5 %; Eosinophils # 0.1 10^3/uL (0.0-0.8); Eosinophils % 0.5 %; Hematocrit 43.4 % (36-47); Lymphocytes # 1.6 10^3/uL (0.8-4.8); Lymphocytes % 15.2 %; Mean Corpuscular HGB Conc 31.1 g/dL (30-55); Mean Corpuscular Hemoglobin 30.8 pg (27-33); Mean Corpuscular Volume 98.9 fl (85-98); Monocytes # 0.8 10^3/uL (0.2-0.9); Monocytes % 7.5 %; Neutrophils # 8.15 10^3/uL (1.8-7.7); Nucleated Red Blood Cells % 0 %; Platelet Count 370 10^3/cmm (157-399); Red Blood Count 4.39 10^6/uL (3.85-5.65); Red Cell Distribution Width 15.9 % (12.1-15.1); White Blood Count 10.71 10^3/uL (3.29-11.43)
[2023-12-11 16:31] LABS: Alanine Aminotransferase < 5 U/L (0-33); Albumin Level 4.1 g/dL (3.5-5.2); Alkaline Phosphatase 170 U/L (35-105); Anion Gap 16.9 (5-19); Aspartate Amino Transferase 11 U/L (0-32); Blood Urea Nitrogen 7 mg/dL (8-23); Calcium 9.6 mg/dL (8.5-10.5); Carbon Dioxide 29 mmol/L (22-29); Chloride 101 mmol/L (98-107); Creatinine Clr Calc Pharmacy 83.0586; Globulin 3.6 g/dL (1.3-4.6); Glomerular Filtration Rate 101.3 mL/min (90-130); Glucose 124 mg/dL (65-115); Osmolality Calculated 295 mOsm/kg (285-295); Potassium 3.9 mmol/L (3.5-5.1); Sodium 143 mmol/L (136-145); Total Bilirubin 0.2 mg/dL (0.15-1.2); Total Protein 7.7 g/dL (6.6-8.7)
[2023-12-11 16:34] LABS: Acetaminophen < 5.0 ug/mL (10-30); Salicylate < 0.3 mg/dL (3-10)
--- NOTE | 2023-12-11 17:47 | XRR_ITS ---
PROCEDURE INFORMATION: Exam: XR Chest Exam date and time: 12/11/2023 5:55 PM Age: 63 years old Clinical indication: Screening exam; Other screening; Additional info: Screening for pysch placement TECHNIQUE: Imaging protocol: Radiologic exam of the chest. Views: 1 view. COMPARISON: CR XR chest 1V portable [id number] 02/22/2023 2:37 PM FINDINGS: Lungs: Unremarkable. No consolidation. Pleural spaces: Unremarkable. No pleural effusion. No pneumothorax. Heart/Mediastinum: Unremarkable. No cardiomegaly. Bones/joints: Unremarkable. XR/XR chest 1V portable [id number] IMPRESSION: No acute findings.
--- NOTE | 2023-12-11 18:55 | ED.C_ITS ---
HPI - Psych 2 General: Chief Complaint: Psychiatric Symptoms Stated Complaint: SI Time Seen by Provider: 12/11/23 14:07 Source: patient Mode of arrival: ambulatory Limitations: no limitations History of Present Illness: Patient reports she is just tired of it all, she is tired of being homeless and she wants to just end her life. Reports overdose or cutting herself as mechanism to do it. MD complaint: suicidal ideation and feels depressed Associated symptoms: Deny delusions Review of Systems 2 General: Reports: 10 or more systems reviewed and unremarkable except in HPI and below PFSH ED 2 PFSH: Medical History Allergic rhinitis Benign neoplasm of bone of hand Chronic tension headaches Constipation by delayed colonic transit COPD (chronic obstructive pulmonary disease) Depression Fibromyalgia GERD (gastroesophageal reflux disease) Hepatitis B Hyperparathyroidism Insomnia disorder Kidney stones, calcium oxalate Nonunion after arthrodesis Osteoarthritis involving multiple joints on both sides of body Bilateral hands, arms, feet and knees Post traumatic stress disorder (PTSD) Vitamin D deficiency Surgical History History of esophagogastroduodenoscopy (EGD) 5 yrs ago History of hysterectomy History of tonsillectomy Hx of colonoscopy 5 yrs ago Postoperative state Family History Father Aneurysm Mother Cancer neck Social History Smoking and tobacco/nicotine status: current every day tobacco/nicotine user cigarettes Packs smoked per day: 0.5 Years cigarettes smoked: 45 Quit status (tobacco/nicotine): not considering quitting Alcohol intake: former Substance/Drug Use: former Physical Exam 2 Const: COMMON NORMALS: no acute distress, average body habitus, patient oriented x3, healthy appearing, alert and well nourished GENERAL APPEARANCE: well developed HENMT: COMMON NORMALS: normocephalic, atraumatic, external ears normal and moist oral mucous membranes HEAD & SCALP: normocephalic and atraumatic E XTERNAL EAR: Yes external ears normal Eye: COMMON NORMALS: Equal, round and reactive pupils present, EOMs intact bilaterally and conjunctivae normal CONJUNCTIVA: Yes conjunctivae normal P UPIL: Yes Equal, round and reactive pupils present Neck/C-Spine: COMMON NORMALS: full ROM, no lymphadenopathy and supple Chest: CHEST: Yes Symmetrical chest wall rise and No Surgical scars present (Chest) Resp: COMMON NORMALS: normal respiratory effort, No retractions, No use of accessory muscles and clear to auscultation bilaterally AUSCULTATION: clear to auscultation bilaterally Cardio: COMMON NORMALS: regular rate, regular rhythm, S1 normal heart sound present, S2 normal heart sound present, No gallops present (Cardio), No clicks present (Cardio), No murmurs present (Cardio) and No rub (Cardio) RATE: r egular rate RHYTHM: regular rhythm HEART SOUNDS: S1 normal heart sound present, S2 normal heart sound present and no murmurs PERIPHERAL PULSES: o ther (Radial pulses 2+ and symmetric) GI: COMMON NORMALS: Soft to palpation, non-tender and no masses INSPECTION: No abdominal distension PALPATION: Yes Soft to palpation, No Guarding due to palpation present (GI) and No Rebound tenderness present : COMMON NORMALS: Yes no CVA tenderness BLADDER/KIDNEY EXAM: Yes no CVA tenderness Back/Pelvis: COMMON NORMALS: no CVA tenderness Extremity: COMMON NORMALS: normal to inspection, full ROM, capillary refill normal and no clubbing, cyanosis or edema Neuro: COMMON NORMALS: patient oriented x3 SENSORIUM/ORIENTATION: Yes alert Psych: COMMON NORMALS: mental status grossly normal, speech normal, denies hallucinations and denies homicidal ideation APPEARANCE: Yes unkempt A TTITUDE: Yes calm and Yes Withdrawn affect present ACTIVITY/MOTOR BEHAVIOR: Y es appropriate eye contact SPEECH: Yes normal speech MOOD & AFFECT: Yes depressed mood, Yes sad and Yes tearful THOUGHT PROCESS: no flight of ideas and logical THOUGHT CONTENT: Yes Suicidality present, No Homicidality present, No delusions and No Hallucination(s) present A TTENTION/CONCENTRATION: Yes attention grossly intact MEMORY/COGNITION: Yes memory grossly intact INSIGHT: Limited insight present (Psych) JUDGEMENT: Poor judgement present (Psych) Skin: COMMON NORMALS: no rashes or lesions noted, no wounds, turgor normal and no jaundice GENERAL SKIN EXAM: no rashes or lesions noted and turgor normal Course 2 ED course: Prolonged ER time secondary to needing facility for placement. Our local psychiatric facility at our [facility] is full and has no beds. Reevaluation(s): Reevaluation #1: Due to still waiting on psych beds. Will sign out patient to Dr. Lovell Time: 22:51 Vital Signs: Vital signs: Vital Signs Temperature 98.3 F 12/11/23 14:08 Pulse Rate 65 12/11/23 19:26 Respiratory Rate 16 12/11/23 19:26 Blood Pressure 133/83 12/11/23 19:26 Pulse Oximetry 99 12/11/23 19:26 [facility] - Psych Medical Decision Making Spoke with Dr. Chery, but reports no beds for female patients currently. Agreed with need for inpatient based on my presentation. Working on finding her a place. Patient started to get antsy about leaving so a form 96 was filled out and submitted. Reviewing her urine she also has UTI, started on Macrobid here in the ER. Differential Diagnosis Likely suicidal ideation and depression Medical Records I reviewed the patient's medical records. Lab Data I reviewed the patient's lab results. 12/11/23 16:05 12/11/23 16:05 Radiology Impressions Chest X-Ray 12/11/23 17:47 IMPRESSION: No acute findings. Laboratory Results WBC 10.71 10^3/uL (3.29-11.43) 12/11/23 16:05 RBC 4.39 10^6/uL (3.85-5.65) 12/11/23 16:05 Hgb 13.50 g/dL (11.27-16.99) 12/11/23 16:05 Hct 43.4 % (36-47) 12/11/23 16:05 MCV 98.9 fl (85-98) H 12/11/23 16:05 MCH 30.8 pg (27-33) 12/11/23 16:05 MCHC 31.1 g/dL (30-55) 12/11/23 16:05 RDW 15.9 % (12.1-15.1) H 12/11/23 16:05 Plt Count 370 10^3/cmm (157-399) 12/11/23 16:05 MPV 9.0 fL (7.4-10.4) 12/11/23 16:05 Neut % (Auto) 76.0 % 12/11/23 16:05 Lymph % (Auto) 15.2 % 12/11/23 16:05 [place] % (Auto) 7.5 % 12/11/23 16:05 Eos % (Auto) 0.5 % 12/11/23 16:05 Baso % (Auto) 0.5 % 12/11/23 16:05 Neut # (Auto) 8.15 10^3/uL (1.8-7.7) H 12/11/23 16:05 Lymph # (Auto) 1.6 10^3/uL (0.8-4.8) 12/11/23 16:05 [place] # (Auto) 0.8 10^3/uL (0.2-0.9) 12/11/23 16:05 Eos # (Auto) 0.1 10^3/uL (0.0-0.8) 12/11/23 16:05 Baso # (Auto) 0.1 10^3/uL (0.0-0.1) 12/11/23 16:05 Nucleated RBC % (auto) 0 % 12/11/23 16:05 Nucleated RBCs # 0.0 /100WBC 12/11/23 16:05 Sodium 143 mmol/L (136-145) 12/11/23 16:05 Potassium 3.9 mmol/L (3.5-5.1) 12/11/23 16:05 Chloride 101 mmol/L (98-107) 12/11/23 16:05 Carbon Dioxide 29 mmol/L (22-29) 12/11/23 16:05 Anion Gap 16.9 (5-19) 12/11/23 16:05 BUN 7 mg/dL (8-23) L 12/11/23 16:05 Creatinine 0.6 mg/dL (0.5-0.9) 12/11/23 16:05 GFR Calculation 101.3 mL/min (90-130) 12/11/23 16:05 Glucose 124 mg/dL (65-115) H 12/11/23 16:05 Calculated Osmolality 295 mOsm/kg (285-295) 12/11/23 16:05 Calcium 9.6 mg/dL (8.5-10.5) 12/11/23 16:05 Total Bilirubin 0.2 mg/dL (0.15-1.2) 12/11/23 16:05 AST 11 U/L (0-32) 12/11/23 16:05 ALT < 5 U/L (0-33) 12/11/23 16:05 Alkaline Phosphatase 170 U/L (35-105) H 12/11/23 16:05 Total Protein 7.7 g/dL (6.6-8.7) 12/11/23 16:05 Albumin 4.1 g/dL (3.5-5.2) 12/11/23 16:05 Globulin 3.6 g/dL (1.3-4.6) 12/11/23 16:05 Urine Color Yellow (Yellow) 12/11/23 14:34 Urine Appearance Slightly cloudy (CLEAR) 12/11/23 14:34 Urine pH 6.5 (5-7) 12/11/23 14:34 Ur Specific [place] 1.010 (1.005-1.030) 12/11/23 14:34 Urine Protein Neg (Negative) 12/11/23 14:34 Urine Glucose (UA) Norm (Normal) 12/11/23 14:34 Urine Ketones Negative (Negative) 12/11/23 14:34 Urine Blood 2+ (Negative) H 12/11/23 14:34 Urine Nitrate Positive (Negative) H 12/11/23 14:34 Urine Bilirubin Neg (Negative) 12/11/23 14:34 Urine Urobilinogen Norm mg/dL (Negative) 12/11/23 14:34 Ur Leukocyte Esterase 2+ (Negative) H 12/11/23 14:34 Urine RBC 0-4 /hpf (0-2) H 12/11/23 14:34 Urine WBC 10-15 /hpf (0-5) H 12/11/23 14:34 Ur Squamous Epith Cells 0-4 /hpf (0-5) H 12/11/23 14:34 Ur Transition Epith Cell 0-4 /hpf 12/11/23 14:34 Amorphous Sediment Not Reportable 12/11/23 14:34 Urine Bacteria 2+ /hpf (NONE) H 12/11/23 14:34 Urine Mucus None /hpf 12/11/23 14:34 Salicylates < 0.3 mg/dL (3-10) L 12/11/23 16:05 Urine Opiates Screen Negative ng/mL (Negative) 12/11/23 14:34 Acetaminophen < 5.0 ug/mL (10-30) L 12/11/23 16:05 Ur Barbiturates Screen Negative ng/mL (Negative) 12/11/23 14:34 Ur Phencyclidine Scrn Negative ng/mL (Negative) 12/11/23 14:34 Ur Amphetamines Screen Positive ng/mL (Negative) H 12/11/23 14:34 U Benzodiazepines Scrn Negative ng/mL (Negative) 12/11/23 14:34 Urine Cocaine Screen Negative ng/mL (Negative) 12/11/23 14:34 U Marijuana (THC) Screen Negative ng/mL (Negative) 12/11/23 14:34 Ethyl Alcohol < 10 mg/dL (0-10) 12/11/23 16:09 Influenza Type A Ag negative (Negative) 12/11/23 18:35 Influenza Type B Ag negative (Negative) 12/11/23 18:35 RSV Antigen Negative (Negative) 12/11/23 18:35 SARS-CoV-2 Ag (Rapid) negative (Negative) 12/11/23 18:35 All radiology interpretation(s) finalized by discharge ED provider radiology interpretation(s): X-ray of the chest unremarkable. Discharge Plan Discharge Clinical Impression: Suicidal ideation Depression Qualifiers: Depression Type: major depressive disorder Major depression recurrence: r ecurrent Active/Remission status: currently active Major depression episode severity: severe Psychotic features: without psychotic features Qualified Code(s): F33.2 - Major depressive disorder, recurrent severe without psychotic features Condition: Stable Prescriptions: No Action cholecalciferol (vitamin D3) 25 mcg (1,000 unit) capsule 25 mcg PO DAILY quetiapine [Seroquel] 25 mg tablet 25 mg PO DAILY ferrous sulfate [Feosol] 325 mg (65 mg iron) tablet 325 mg PO DAILY Qty: 30 2RF baclofen 10 mg tablet 10 mg PO TID Qty: 90 0RF gabapentin 600 mg tablet 600 mg PO TID Qty: 90 0RF cetirizine [Zyrtec] 10 mg tablet 10 mg PO DAILY 30 Days Qty: 30 0RF meloxicam 15 mg tablet 15 mg PO DAILY pantoprazole 40 mg tablet,delayed release (DR/EC) 40 mg PO DAILY Referrals: Breonna Barnes, REYES [Primary Care Provider] - Coding Level of Care Code ED Inspector [facility]
--- NOTE | 2023-12-11 19:00 | PC.NURSE ---
Assumed care from Yari KWOK.
[2023-12-11] MEDS: nitrofurantoin SR (BID) 100 mg Capsule PO (19:22)
[2023-12-11 19:26] VITALS: BP 133/83; PULSE 65; RESP 16; O2SAT 99
[2023-12-11 19:28] LABS: SARS Covid-2 Antigen negative (Negative)
[2023-12-11 19:29] LABS: Influenza A by IFA negative (Negative); Influenza B by IFA negative (Negative)
[2023-12-11 19:35] LABS: RSV Transfer Patient (ED) Negative (Negative)
--- NOTE | 2023-12-11 19:37 | PC.NURSE ---
96 hour hold rights read to patient. Patient verbalized understandings. Copy of rights given to patient.
[2023-12-11 20:55] LABS: Alcohol Level < 10 mg/dL (0-10)
--- NOTE | 2023-12-11 23:00 | PC.NURSE ---
RISSA Gutiérrez at [place] wanted clarification on patient continence status. RISSA Gutiérrez then stated to this nurse that she would be talking to a provider and would call back with any updates.
[2023-12-11] MEDS: trazodone 100 mg Tablet PO (23:54)
[2023-12-12 06:11] VITALS: BP 113/62; PULSE 63; RESP 16; O2SAT 97
--- NOTE | 2023-12-12 10:31 | PC.NURSE ---
report called to Ellie in [facility], no further questions at end of report.
[2023-12-12 10:36] VITALS: BP 113/62; PULSE 63; RESP 16; O2SAT 97
[2023-12-12 10:56] VITALS: BP 126/81; PULSE 82; RESP 16; TEMP 36.5; O2SAT 96
--- NOTE | 2023-12-12 12:07 | PC.NURSE ---
Patient states she has been wanting to commit suicide due to being homeless for a long time. She says she would do this by hanging herself. She says she has been having issues with her boyfriend, but did not want to elaborate. She also says she has been having problems with her family and that they don't speak. Denies avh and hi. Patient currently has thyroid cancer and sees Dr. Amaro in [place]. Patient states the only medication she uses is seroquel. Patient denies any recent drug use. She endorses having a few swigs of vodka yesterday and although she tested positive for methamphetamine she said it has been months since she used. Patient very tearful upon assessment.
--- NOTE | 2023-12-12 12:32 | PC.NURSE ---
Patient room searched for contraband. Hygiene box, towels, and hairclip confiscated.
[2023-12-12 13:26] VITALS: BP 113/74; PULSE 72; RESP 16; TEMP 36.7; O2SAT 95
[2023-12-12 20:39] VITALS: BP 104/68; PULSE 73; RESP 17; TEMP 36.8; O2SAT 97
[2023-12-12] MEDS: hyDROXYzine 25 mg Capsule 50 MG PO (22:23)
[2023-12-12] MEDS: trazodone 50 mg Tablet PO (22:23)
[2023-12-12] MEDS: nitrofurantoin SR (BID) 100 mg Capsule PO (22:23)
[2023-12-12] MEDS: gabapentin 300 mg Capsule 600 MG PO (22:23)
[2023-12-12] MEDS: baclofen 10 mg Tablet PO (22:23)
[2023-12-12] MEDS: quetiapine 25 mg Tablet PO (22:23)
[2023-12-12] MEDS: acetaminophen 325 mg Tablet 650 MG PO (22:26)
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
[2023-12-13 06:18] VITALS: BP 115/74; PULSE 53; RESP 16; TEMP 36.4; O2SAT 99
[2023-12-13] MEDS: pantoprazole DR 40 mg Tablet PO (08:38)
[2023-12-13] MEDS: cholecalciferol (vitamin D3) 1,000 unit Tablet 1000 UNIT PO (08:38)
[2023-12-13] MEDS: meloxicam 7.5 mg tablet 15 MG PO (08:38)
[2023-12-13] MEDS: gabapentin 300 mg Capsule 600 MG PO ×3 (08:38→21:38)
[2023-12-13] MEDS: baclofen 10 mg Tablet PO ×3 (08:38→21:37)
[2023-12-13] MEDS: fixodent 39 gm Tube 1 APPLIC DENTAL (08:38)
[2023-12-13] MEDS: ferrous sulfate EC 325 mg Tablet PO (08:38)
[2023-12-13] MEDS: cetirizine 10 mg Tablet PO (08:38)
[2023-12-13] MEDS: nitrofurantoin SR (BID) 100 mg Capsule PO ×2 (08:38→21:37)
--- NOTE | 2023-12-13 12:32 | XR_ITS ---
WS: [id number] Exam: XR elbow LT min 3V* [id number] Date/Time of Exam: 12/13/2023 12:51 PM Reason For Exam: pain and swelling from a recent fall No acute fracture noted. No joint effusion. Posterior soft tissue swelling along the proximal ulna. XR/XR elbow LT min 3V* [id number] IMPRESSION: 1. No acute fracture or joint effusion. 2. Posterior soft tissue swelling.
[2023-12-13 14:00] VITALS: BP 104/67; PULSE 67; RESP 18; TEMP 37; O2SAT 98
[2023-12-13] MEDS: acetaminophen 325 mg Tablet 650 MG PO (17:30)
[2023-12-13 20:57] VITALS: BP 116/62; PULSE 66; RESP 16; TEMP 36.7; O2SAT 97
[2023-12-13] MEDS: quetiapine 25 mg Tablet PO (21:37)
[2023-12-13] MEDS: fluoxetine 20 mg Capsule PO (21:37)
[2023-12-13] MEDS: hyDROXYzine 25 mg Capsule 50 MG PO (21:38)
[2023-12-14] MEDS: trazodone 50 mg Tablet PO ×2 (02:06→21:49)
[2023-12-14] MEDS: hyDROXYzine 25 mg Capsule 50 MG PO ×2 (03:06→21:49)
[2023-12-14] MEDS: OLANZapine 5 mg ODT PO (03:06)
[2023-12-14 06:00] VITALS: BP 95/56; PULSE 60; RESP 16; TEMP 36.4; O2SAT 97
[2023-12-14] MEDS: meloxicam 7.5 mg tablet 15 MG PO (09:37)
[2023-12-14] MEDS: baclofen 10 mg Tablet PO ×3 (09:38→21:49)
[2023-12-14] MEDS: cetirizine 10 mg Tablet PO (09:38)
[2023-12-14] MEDS: ferrous sulfate EC 325 mg Tablet PO (09:38)
[2023-12-14] MEDS: pantoprazole DR 40 mg Tablet PO (09:38)
[2023-12-14] MEDS: fluoxetine 20 mg Capsule PO (09:38)
[2023-12-14] MEDS: gabapentin 300 mg Capsule 600 MG PO ×3 (09:38→21:49)
[2023-12-14] MEDS: cholecalciferol (vitamin D3) 1,000 unit Tablet 1000 UNIT PO (09:38)
[2023-12-14] MEDS: nitrofurantoin SR (BID) 100 mg Capsule PO ×2 (09:39→21:55)
--- NOTE | 2023-12-14 12:11 | W.PM.NPUPNS ---
Subjective NPU Subjective: Patient presented today reporting that she is doing okay. She is not identifying any improvement with the Prozac but also identifies that there have been no setbacks and she certainly does not feel worse. We discussed the process and timeline wanted to expect before improvements. We discussed that Dr. Bradley would be here tomorrow and continue the process. She denied any side effects to the medications. Mental Status Exam MSE Comments: This is an slender/underweight white female, looking older than her stated age in hospital scrubs, with limited grooming and eye contact. No abnormal movements, except for mild psychomotor retardation. She was mostly cooperative with exam in mild to moderate distress. Speech was decreased rate and volume. Her mood was described as depressed, her affect was congruent. Her thought process was linear. Thought content: She endorsed suicidal ideation with no plan, she denied homicidal ideation. She denied auditory or visual visual hallucinations. There were no delusions reported or noted. Suicidal risk present, anxiety, depression, no visual hallucinations, no paranoia, no obsessive behaviors, tinnitus Attention and concentration appeared grossly intact and memory is somewhat reliable, but none were formally tested. Alert and oriented times three. Insight and judgment are limited impulse control is limited. Vitals/I&O/Wt Last Vital Signs Temp 97.6 F 12/14/23 06:00 Pulse 60 12/14/23 06:00 Resp 16 12/14/23 06:00 BP 95/56 12/14/23 06:00 Pulse Ox 97 12/14/23 06:00 O2 Del Method Room Air 12/14/23 06:00 Data NPU 12/11/23 16:05 12/11/23 16:05 Micro: Microbiology 12/11/23 14:34 Urine Culture - Final Urine,Clean Catch Escherichia coli Microbiology 12/11/23 14:34 Urine,Clean Catch Urine Culture - Final Escherichia coli A&P Assessment and plan (1) Post traumatic stress disorder (PTSD): (2) Major depressive disorder, recurrent: (3) Methamphetamine use disorder, severe, dependence: (4) Cannabis use disorder: (5) Suicidal ideation: Plan This is a 63-year-old white female with a long history of mental health and addiction challenges going back to at least 2009 in the system Patient presents with suicidal ideation, depression, anxiety, and panic attacks. She has a history of substance use but has been clean for 27 years. She is currently homeless and has limited social support. She has recently been diagnosed with cancer, which is causing additional stress and anxiety. 1. Will attempt to gather collateral information 2. Continue every 15 minute checks for safety. 3. Encourage individual, group and milieu therapy. 4. Encourage sober living treatment after discharge at the highest level of care to which she is willing to commit. 5. Continue current medication. Started Prozac 20 mg p.o. daily. 6. Get a 3 view x-ray of left elbow and consider a hospitalist consult. Involuntary Hold Information 96 Hour Hold: 96 Hour Involuntary Admission: Yes 96 Hour Hold Ending Date: 12/17/23 96 Hour Hold Ending Time: 18:03 Attestations NPU Medical Necessity Statement*: Inpatient hospitalization is medically necessary and the clinically appropriate intervention at this time. We will monitor/initiate medications and make changes as indicated. Her likely length of stay 3-5 days. Coding Level of Care Code Acute Code for [facility] Diagnoses Post traumatic stress disorder (PTSD) F43.10 Major depressive disorder, recurrent F33.9 Methamphetamine use disorder, severe, dependence F15.20 Cannabis use disorder F12.90 Suicidal ideation R45.851
[2023-12-14 14:00] VITALS: BP 124/72; PULSE 73; RESP 16; TEMP 36.6; O2SAT 98
[2023-12-14] MEDS: ondansetron 4 MG Tablet PO (15:06)
--- NOTE | 2023-12-14 15:07 | PC.NURSE ---
administers prn zofran for nauesa.
[2023-12-14 19:45] VITALS: BP 133/68; PULSE 54; RESP 16; TEMP 36.3; O2SAT 99
[2023-12-14] MEDS: promethazine 25 mg/mL SDV 1 mL IM (20:31)
[2023-12-14] MEDS: quetiapine 25 mg Tablet PO (21:49)
[2023-12-15] MEDS: trazodone 50 mg Tablet PO ×2 (01:34→22:11)
[2023-12-15] MEDS: OLANZapine 5 mg ODT PO (01:34)
[2023-12-15 06:00] VITALS: BP 90/59; PULSE 104; RESP 16; TEMP 36.7; O2SAT 96
[2023-12-15] MEDS: gabapentin 300 mg Capsule 600 MG PO ×3 (08:38→20:57)
[2023-12-15] MEDS: cetirizine 10 mg Tablet PO (08:38)
[2023-12-15] MEDS: pantoprazole DR 40 mg Tablet PO (08:38)
[2023-12-15] MEDS: fluoxetine 20 mg Capsule PO (08:38)
[2023-12-15] MEDS: nitrofurantoin SR (BID) 100 mg Capsule PO ×2 (08:38→20:57)
[2023-12-15] MEDS: ferrous sulfate EC 325 mg Tablet PO (08:38)
[2023-12-15] MEDS: cholecalciferol (vitamin D3) 1,000 unit Tablet 1000 UNIT PO (08:38)
[2023-12-15] MEDS: baclofen 10 mg Tablet PO ×3 (08:38→20:57)
[2023-12-15] MEDS: meloxicam 7.5 mg tablet 15 MG PO (08:39)
[2023-12-15 14:00] VITALS: BP 94/64; PULSE 101; RESP 17; TEMP 36.8; O2SAT 95
[2023-12-15 20:18] VITALS: BP 98/60; PULSE 95; RESP 16; TEMP 36.6; O2SAT 96
[2023-12-15] MEDS: quetiapine 25 mg Tablet PO (20:57)
--- NOTE | 2023-12-15 21:15 | P.NPUPN_ITS ---
Subjective NPU 2 Subjective: 63-year-old female with a history of anx iety and depression admitted with suicidal ideation. She reported having an upset stomach with a history of ulcers. She had reported multiple issues with pain. She reported no recent problems with Prozac but reported that it was not helping her yet with her mood. She had continued to report feeling suspicious of others. She reported no side effects other than having nausea which she is described as having 4 several years. She reported some difficulties with falling asleep. Mental Status Exam 2 MSE Comments: This is an slender/underweight white female, looking older than her stated age in hospital scrubs, with limited grooming and eye contact. No abnormal movements, except for mild psychomotor retardation. She was mostly cooperative with exam in mild to moderate distress. Speech was normal in rate and volume. Her mood was described as depressed, her affect was restricted in range and mood congruent. Her thought process was linear. Thought content: She endorsed suicidal ideation with no plan, she denied homicidal ideation. She denied auditory or visual visual hallucinations. There were no delusions reported or noted. Suicidal risk present, anxiety, depression, no visual hallucinations, no paranoia, no obsessive behaviors, tinnitus Attention and concentration appeared grossly intact and memory is somewhat reliable, but none were formally tested. Alert and oriented times three. Insight and judgment are limited impulse control is limited. Vitals/I&O/Wt Last Vital Signs Temp 97.9 F 12/15/23 20:18 Pulse 95 12/15/23 20:18 Resp 16 12/15/23 20:18 BP 98/60 12/15/23 20:18 Pulse Ox 96 12/15/23 20:18 O2 Del Method Room Air 12/14/23 14:00 Data NPU 12/11/23 16:05 12/11/23 16:05 A&P Assessment and plan (1) Post traumatic stress disorder (PTSD): (2) Major depressive disorder, recurrent: (3) Methamphetamine use disorder, severe, dependence: (4) Cannabis use disorder: (5) Suicidal ideation: Plan This is a 63-year-old white female with a long history of mental health and addiction challenges going back to at least 2009 in the system Patient presents with suicidal ideation, depression, anxiety, and panic attacks. She has a history of substance use but has been clean for 27 years. She is currently homeless and has limited social support. She has recently been diagnosed with cancer, which is causing additional stress and anxiety. 1. Will attempt to gather collateral information 2. Continue every 15 minute checks for safety. 3. Encourage individual, group and milieu therapy. 4. Encourage sober living treatment after discharge at the highest level of care to which she is willing to commit. 5. Continue current medication. Continue Prozac 20 mg p.o. daily. Increase seroquel to 50mg at night. 6. Get a 3 view x-ray of left elbow and consider a hospitalist consult. Involuntary Hold Information 2 96 Hour Hold: 96 Hour Involuntary Admission: Yes 96 Hour Hold Ending Date: 12/17/23 96 Hour Hold Ending Time: 18:03 Attestations NPU 2 Medical Necessity Statement*: Inpatient hospitalization is medically necessary and the clinically appropriate intervention at this time. We will monitor/initiate medications and make changes as indicated. Her likely length of stay 3-5 days. Coding Level of Care Code Acute Code for [facility] Diagnoses Post traumatic stress disorder (PTSD) F43.10 Major depressive disorder, recurrent F33.9 Methamphetamine use disorder, severe, dependence F15.20 Cannabis use disorder F12.90 Suicidal ideation R45.851
[2023-12-15] MEDS: hyDROXYzine 25 mg Capsule 50 MG PO (22:11)
[2023-12-16] MEDS: acetaminophen 325 mg Tablet 650 MG PO (01:29)
[2023-12-16] MEDS: OLANZapine 5 mg ODT PO ×2 (01:29→10:04)
[2023-12-16] MEDS: haloperidol 5 mg Tablet PO (03:43)
[2023-12-16 06:00] VITALS: BP 102/71; PULSE 111; RESP 16; TEMP 36.6; O2SAT 94
[2023-12-16] MEDS: fluoxetine 20 mg Capsule PO (10:03)
[2023-12-16] MEDS: nitrofurantoin SR (BID) 100 mg Capsule PO (10:03)
[2023-12-16] MEDS: cholecalciferol (vitamin D3) 1,000 unit Tablet 1000 UNIT PO (10:03)
[2023-12-16] MEDS: pantoprazole DR 40 mg Tablet PO (10:03)
[2023-12-16] MEDS: meloxicam 7.5 mg tablet 15 MG PO (10:03)
[2023-12-16] MEDS: cetirizine 10 mg Tablet PO (10:04)
[2023-12-16] MEDS: ferrous sulfate EC 325 mg Tablet PO (10:04)
[2023-12-16] MEDS: gabapentin 300 mg Capsule 600 MG PO (10:04)
[2023-12-16] MEDS: baclofen 10 mg Tablet PO (10:04)
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
[2023-12-16 13:33] VITALS: BP 102/71; PULSE 111; RESP 16; TEMP 36.6; O2SAT 94
--- NOTE | 2023-12-17 14:49 | DCPLANNER ---
Pt was discharged on 12/16/2023 and IMM completed by phone 12/17/2023 @ 2:48pm. Pt stated she understood her rights.
== END 2023-12-16 14:31 | DRG 885 ==
LOC: ER 18:58 → NP 12-12 09:46
PROVIDERS: Admitting Provider Psychiatry & Neurology Psychiatry; Emergency Provider Emergency Medicine; PCP Nurse Practitioner Family; Visit Provider Psychiatry & Neurology Psychiatry
DX: F33.9 Major depressive disorder, recurrent, unspecified (principal); F15.20 Other stimulant dependence, uncomplicated; N39.0 Urinary tract infection, site not specified; R45.851 Suicidal ideations; Z59.00 Homelessness unspecified; F43.10 Post-traumatic stress disorder, unspecified; Z62.810 Personal history of physical and sexual abuse in childhood; F12.90 Cannabis use, unspecified, uncomplicated; E55.9 Vitamin D deficiency, unspecified; J30.9 Allergic rhinitis, unspecified; K21.9 Gastro-esophageal reflux disease without esophagitis
CPT/HCPCS: 36415; 71045; 73080; 80053; 80306; 80307; 81001; 85025; 87077; 87086; 87186; 87426; 87804; 87899; 96372; 97150; 97165; 99285; J2550; Q0162

== ENCOUNTER → 2024-02-26 10:25 | Outpatient (BNVA) | payer MEDICAID, SELFPAY | PROVIDERS: PCP Family Medicine Adult Medicine; Visit Provider Internal Medicine | DX: E21.0 Primary hyperparathyroidism (principal); C73 Malignant neoplasm of thyroid gland; E55.9 Vitamin D deficiency, unspecified; R74.8 Abnormal levels of other serum enzymes; Z79.890 Hormone replacement therapy | CPT/HCPCS: 36415; 84432; 84439; 84443; 86800; 99214 ==

== ENCOUNTER → 2024-04-29 09:23 | Outpatient (BNVA) | payer MEDICARE, MEDICAID, SELFPAY | PROVIDERS: PCP Family Medicine Adult Medicine; Visit Provider Internal Medicine | DX: C73 Malignant neoplasm of thyroid gland; E21.0 Primary hyperparathyroidism; E55.9 Vitamin D deficiency, unspecified; R74.8 Abnormal levels of other serum enzymes; G47.01 Insomnia due to medical condition; Z79.890 Hormone replacement therapy | CPT/HCPCS: 36415; 84432; 84439; 84443; 86800; 99214 ==

== ENCOUNTER 2024-05-13 13:42 | Outpatient (CLI) | payer MEDICARE, MEDICAID, SELFPAY ==
--- NOTE | 2024-05-13 13:44 | MM_ITS ---
WS: [id number] BILATERAL 3D TOMOSYNTHESIS DIGITAL SCREENING MAMMOGRAPHY WITH CAD CLINICAL INFORMATION: SCREENING HISTORY: Screening mammogram. No current complaints. COMPARISON: 2022 TECHNIQUE: Bilateral CC and MLO views. FINDINGS: Scattered fibroglandular densities bilaterally. No suspicious focal mass, asymmetry, calcifications, or architectural distortion. No evidence of malignancy. A few incidental punctate calcifications. MM/MM scr tomosynthesis [id number] IMPRESSION: DENSITY: There are scattered areas of fibroglandular density. BI-RADS: 2 - Benign. FOLLOW UP: 1 Year Follow-up Recommend return to annual screening mammography.
== END 2024-05-13 13:43 | disposition home or self-care (01) ==
LOC: RAD 13:43
PROVIDERS: PCP Nurse Practitioner Family; Visit Provider Nurse Practitioner Family
DX: Z12.31 Encounter for screening mammogram for malignant neoplasm of breast (principal); R92.1 Mammographic calcification found on diagnostic imaging of breast
CPT/HCPCS: 77063; 77067

== ENCOUNTER → 2024-05-28 08:40 | Outpatient (BNVA) | payer MEDICARE, MEDICAID, SELFPAY | PROVIDERS: PCP Nurse Practitioner Family; Visit Provider Surgery | DX: K21.9 Gastro-esophageal reflux disease without esophagitis (principal); K59.01 Slow transit constipation; D50.8 Other iron deficiency anemias | CPT/HCPCS: 99214 ==

== ENCOUNTER → 2024-06-04 13:26 | Outpatient (BNVA) | payer MEDICARE, MEDICAID, SELFPAY | PROVIDERS: PCP Nurse Practitioner Family; Visit Provider Nurse Practitioner | DX: M25.512 Pain in left shoulder (principal); M75.22 Bicipital tendinitis, left shoulder; M19.012 Primary osteoarthritis, left shoulder | CPT/HCPCS: 73030; 99213 ==

== ENCOUNTER 2024-06-23 13:59 | Outpatient (CLI) | payer MEDICARE, MEDICAID, SELFPAY ==
[2024-06-23 14:54] LABS: Calcium 9.1 mg/dL (8.5-10.5)
[2024-06-23 14:57] LABS: Free T4 Free Thyroxine 1.74 ng/dL (0.82-1.77); Thyroid Stimulating Hormone 0.49 uIU/mL (0.27-4.20)
[2024-06-23 15:01] LABS: Parathyroid Hormone 57.7 pg/mL (15-65)
[2024-06-25 09:29] LABS: Thyroglobulin AB <1 IU/mL (< or = 1)
== END 2024-06-23 14:00 | disposition home or self-care (01) ==
LOC: LAB 14:01
PROVIDERS: PCP Nurse Practitioner Family; Visit Provider Internal Medicine
DX: C73 Malignant neoplasm of thyroid gland (principal); G47.01 Insomnia due to medical condition; E83.52 Hypercalcemia; R74.8 Abnormal levels of other serum enzymes
CPT/HCPCS: 36415; 82310; 83970; 84432; 84439; 84443; 86800

== ENCOUNTER → 2024-06-24 06:01 | Day surgery (SDC) | payer MEDICARE, MEDICAID, SELFPAY ==
--- OUTSIDE RECORDS SUMMARY | 2024-05-28 12:08 | XMS_ITS ---
Author Name Unknown Organization [facility] Address [address] [place] [address] Care Team Providers Care Ve Teacher Name Role Phone Cameron rBeonna ALONSO Primary Care Provider Preethi Chase Unavailable [phone] REASON FOR VISIT P2P Ref-closed per pt request Encounters Encounter Location Date Provider Diagnosis [facility] [address] [place] [address] 06/06/2023 Preethi Payne Plan Of Treatment No Information Progress Notes * Alina BRIDGES LDOB:[birth year] (62 yo F)Acc No.[id number]:06/06/2023 Patient:?Alina Bridges :1960???Age:62 Y???Sex:Female Address:[address] [place] [id number] * true * Date:? Generated for Kenai michael/Shy/eTransmitting on:?05/28/2024 12:07 PM [facility]
--- OUTSIDE RECORDS SUMMARY | 2024-05-28 12:08 | XMS_ITS | Patient Health Record ---
Author Name Unknown Organization [facility] Address [address] [place] [address] Care Team Providers Care Garment Folder Name Role Phone Breonna Barnes APRN Primary Care Provider Preethi Chase Unavailable [phone] Reason For Referral Reason Anemia See TE Referring Provider First Name Breonna Referring Provider Last Name Cameron Referring Provider Speciality Family Med icine Ref[facility] Referred Provider [facility] Ref[facility] [address] [facility] [place], Referred Provider Specialty Gastroentero logy General Notes 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 Torres 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 Referral Priority Routine Encounters Encounter Location Date Provider Diagnosis [facility] [address] [place] [address] 06/06/2023 Preethi Payne Plan Of Treatment No Information Insurance Providers Payer Name Payer Address Payer Phone Subscriber Number Group Number Insured Name Patient Relationship to Insured Coverage Start Date Coverage End Date [employer] [address] [address] [place] [id number] Alina Bridges Self - patient is the insured [place] Medicaid [address] [place] [address] [id number] Alina Bridges Self - patient is the insured
--- NOTE | 2024-06-24 05:55 | W.PM.OPSUD ---
Surgery/Procedure H&P Update DATE OF PROCEDURE: June 24, 2024 DATE H&P PERFORMED: 06/04/24 H&P UPDATE INFORMATION: I have reviewed H&P completed within last 30 days, I have examined patient prior to procedure, No changes to prior documentation and H&P is in [facility] EMR on date indicated PLANNED PROCEDURE: Operation Date: 06/24/24 07:00 Proposed Procedures p EGD -42844,98023,G0105, K21.9,59.01(Not Applicable) - Curtis Hoyos MD s Colonoscopy(Not Applicable) - Curtis Hoyos MD
[2024-06-24 06:14] VITALS: BP 124/75; PULSE 82; RESP 17; O2SAT 97; BMI 25.0
[2024-06-24] MEDS: sodium chloride 0.9% 500 ML 15 ML IV (06:43)
--- NOTE | 2024-06-24 06:47 | P.ANESASSM_ITS ---
Pre-Anesthetic Assessment Height/Weight: Height 1.6 m Weight 63.957 kg Pulse Resp BP Pulse Ox O2 Del Method 82 17 124/75 97 Room Air 06/24/24 06:14 06/24/24 06:14 06/24/24 06:14 06/24/24 06:14 06/24/24 06:14 Preop Diagnosis: screening/anemic Operation Date: 06/24/24 07:00 Proposed Procedures p EGD -93699,23891,G0105, K21.9,59.01(Not Applicable) - Curtis Hoyos MD s Colonoscopy(Not Applicable) - Curtis Hoyos MD Familial anesthetic complications: none Was Beta Maye taken within 24 hours: N/A Was Clonidine taken within 24 hours: N/A Last intake: Intake Last Liquid Date 06/23/24 Last Liquid Time 21:00 Last Solid Date 06/22/24 Last Solid Time 20:00 Social Tobacco and No alcohol 1 PPD pack(s) per day Exam alert, oriented x 3, clear to auscultation bilaterally and regular rate & rhythm Airway Submandibular: within normal limits Cervical ROM: within normal limits Mallampati: Class II Dentition: false Comments: Comments: Upper Plate History/ROS No significant history except as noted and No significant complaints Pulmonary Exertional Dyspnea CV/HEM Anemia Chronic Renal Insufficiency Hepatic None reported GI Gastroesophageal Reflux Disease Metabolic Diabetes Mellitus and Thyroid Disease [facility] None reported Neuropsych Anxiety Anesthetic Plan ASA status: 2 Anesthesia: MAC Risk of > 500 ml blood loss (7ml/kg in children): No Medications/Allergies Home Medications Medication Instructions Recorded Confirmed Last Taken Type methocarbamol 750 mg tablet 750 mg PO TID muscle pain #90 tabs 01/11/24 06/24/24 06/23/24 Rx cholecalciferol (vitamin D3) 250 250 mcg PO DAILY s/p thyroidectomy 02/01/24 06/24/24 06/23/24 Rx mcg (10,000 unit) capsule #30 caps doxepin 50 mg capsule 50 mg PO .q hs sleep #30 caps 02/07/24 06/24/24 06/23/24 Rx ferrous sulfate 325 mg (65 mg 325 mg PO DAILY Iron #90 tabs 02/07/24 06/24/24 06/23/24 Rx iron) tablet (Feosol) levothyroxine 150 mcg tablet 150 mcg PO DAILY #60 tabs 04/29/24 06/24/24 06/24/24 Rx prednisone 20 mg tablet See Rx Instructions PO .COMPLEX 06/04/24 06/24/24 06/23/24 Rx #10 tabs duloxetine 60 mg capsule,delayed 60 mg PO BID depression 06/19/24 06/24/24 06/23/24 History release (Cymbalta) gabapentin 600 mg tablet 600 mg PO BID 06/19/24 06/24/24 06/24/24 History meloxicam 7.5 mg tablet 15 mg PO DAILY PRN pain 06/19/24 06/24/24 06/23/24 History omeprazole 20 mg capsule,delayed 20 mg PO DAILY 06/19/24 06/24/24 06/23/24 History release quetiapine 25 mg tablet 25 mg PO QPM PRN Sleep 06/19/24 06/24/24 06/18/24 History Allergies Allergy/AdvReac Type Severity Reaction Status Date / Time codeine Allergy ALGY-Hives Verified 06/19/24 10:00 Current Medications Generic Name Dose Route Start Last Admin Trade Name Freq PRN Reason Stop Dose Admin Sodium Chloride 500 mls @ 15 mls/hr 06/24/24 06:07 06/24/24 06:43 Sodium Chloride 0.9% IV 06/25/24 06:06 15 mls/hr .Q24H PRN Administration COLONOSCOPY FLUIDS PFSH Anesthesia Medical History Peripheral neuropathy Parathyroid cancer Iron deficiency anemia Psychiatric care Hepatitis B Osteoarthritis involving multiple joints on both sides of body Bilateral hands, arms, feet and knees Vitamin D deficiency COPD (chronic obstructive pulmonary disease) Constipation by delayed colonic transit Chronic tension headaches GERD (gastroesophageal reflux disease) Kidney stones, calcium oxalate Insomnia disorder Allergic rhinitis Nonunion after arthrodesis Post traumatic stress disorder (PTSD) Benign neoplasm of bone of hand Fibromyalgia Surgical History History of total thyroidectomy 01/22/2024 [facility] Total neck dissection/left and central, reimplantation parathyroid History of parathyroid surgery Hx of colonoscopy 5 yrs ago History of esophagogastroduodenoscopy (EGD) 5 yrs ago Postoperative state History of hysterectomy History of tonsillectomy Family History Father Aneurysm Mother Cancer neck Social History Smoking and tobacco/nicotine status: current every day tobacco/nicotine user cigarettes Packs smoked per day: 0.5 Years cigarettes smoked: 45 Quit status (tobacco/nicotine): not considering quitting Alcohol intake: current Alcohol intake frequency: holidays/special occasions only Substance/Drug Use: former Data Anesthesia Cardiac Studies: No Data to Display
--- NOTE | 2024-06-24 07:22 | PC.NURSE ---
Anesthesia requested urine sample from pt, pt states unable to provide urine sample. Pt states that she started the bowel prep late and is concerned about not being cleaned out enough, would like to cancel and reschedule procedure. IV removed. Office notified.
== END ==
LOC: GILAB 06:02
PROVIDERS: PCP Nurse Practitioner Family; Visit Provider Surgery
PROC: 0DJ08ZZ Inspection of Upper Intestinal Tract, Via Natural or Artificial Opening Endoscopic (ICD-10-PCS; CPT 43235; principal; 2024-06-24 07:00)
PROC: 0DJD8ZZ Inspection of Lower Intestinal Tract, Via Natural or Artificial Opening Endoscopic (ICD-10-PCS; CPT 45378; 2024-06-24 07:00)
DX: K59.01 Slow transit constipation (principal); K21.9 Gastro-esophageal reflux disease without esophagitis; Z53.8 Procedure and treatment not carried out for other reasons; F17.200 Nicotine dependence, unspecified, uncomplicated; E11.9 Type 2 diabetes mellitus without complications; J44.9 Chronic obstructive pulmonary disease, unspecified; M79.7 Fibromyalgia; Z85.850 Personal history of malignant neoplasm of thyroid
CPT/HCPCS: J2371; J2704; J3490; J7040

== ENCOUNTER → 2024-07-21 13:45 | Outpatient (BNVA) | payer MEDICARE, MEDICAID, SELFPAY | PROVIDERS: PCP Nurse Practitioner Family; Visit Provider Nurse Practitioner | DX: M19.012 Primary osteoarthritis, left shoulder (principal); M75.22 Bicipital tendinitis, left shoulder | CPT/HCPCS: 20610; 99214; J1100; J2795; J3301 ==

== ENCOUNTER → 2024-09-16 13:09 | Outpatient (BNVA) | payer MEDICARE, MEDICAID, SELFPAY | PROVIDERS: PCP Nurse Practitioner Family; Visit Provider Podiatrist Foot & Ankle Surgery | DX: M79.671 Pain in right foot (principal); M79.672 Pain in left foot; M20.42 Other hammer toe(s) (acquired), left foot; F43.10 Post-traumatic stress disorder, unspecified; Z79.899 Other long term (current) drug therapy | CPT/HCPCS: 73630; 80061; 83036; 99214 ==

== ENCOUNTER 2024-09-23 13:46 | Outpatient (CLI) | payer MEDICARE, MEDICAID, SELFPAY ==
[2024-09-18 09:46] VITALS: BP 124/87; BMI 24.0
--- NOTE | 2024-09-23 14:01 | MR_ITS ---
WS: [id number] MRI LEFT SHOULDER HISTORY: shoulder pain COMPARISON: Radiograph 06/04/2024 TECHNIQUE: Multiplanar sequences of the shoulder joint are submitted. Significant motion artifact. Moderate AC joint hypertrophy. Narrowing of the AC joint. Mild downsloping of the acromion. Large amount of fluid in the subacromial and subdeltoid bursa. No os acromion. Biceps tendon is subluxed from the bicipital groove. Biceps tendon is difficult to evaluate due to the motion. High riding humeral head. Glenohumeral joint narrowing. Full-thickness tear involving the supraspinatus tendon. Tendon is retracted to the medial humeral head. Large fluid gap along the expected location of the tendon. Irregular surface of the subscapularis tendon. No retraction of the tendon. Suspect there is a small insertion site tear near the rotator cuff interval. Infraspinatus tendon is intact. Moderate atrophy of the supraspinatus and subscapularis muscles. Intrasubstance degeneration and fraying of the labrum. MR/MR shoulder LT wo con* [id number] IMPRESSION: 1. Quality of this exam is compromised by motion artifact. 2. Complete tear with retraction of the supraspinatus tendon. Tendon retracted to the medial humeral head. 3. Intrasubstance degeneration and fraying of the subscapularis tendon. Insert ion site tear suspected but there is no retraction of the tendon. 4. Moderate atrophy of the supraspinatus and subscapularis muscles. 5. Moderate AC joint hypertrophy. 6. Large amount of fluid in the subacromial and subdeltoid bursa. 7. Subluxed biceps tendon from the bicipital groove.
== END 2024-09-23 13:47 | disposition home or self-care (01) ==
PROVIDERS: PCP Nurse Practitioner Family; Visit Provider Nurse Practitioner
DX: M19.012 Primary osteoarthritis, left shoulder (principal); M75.102 Unspecified rotator cuff tear or rupture of left shoulder, not specified as traumatic; R93.6 Abnormal findings on diagnostic imaging of limbs; M62.512 Muscle wasting and atrophy, not elsewhere classified, left shoulder; S43.082A Other subluxation of left shoulder joint, initial encounter; X58.XXXA Exposure to other specified factors, initial encounter
CPT/HCPCS: 73221

== ENCOUNTER 2024-09-26 10:41 | Outpatient (CLI) | payer MEDICARE, MEDICAID, SELFPAY ==
[2024-09-18 09:46] VITALS: BP 124/87; BMI 24.0
[2024-09-26 11:07] LABS: Basophils % 0.3 %; Eosinophils # 0.1 10^3/uL (0.0-0.8); Eosinophils % 0.8 %; Hematocrit 41.4 % (36-47); Lymphocytes # 2.1 10^3/uL (0.8-4.8); Lymphocytes % 16.2 %; Mean Corpuscular HGB Conc 31.6 g/dL (30-55); Mean Corpuscular Hemoglobin 30.7 pg (27-33); Mean Platelet Volume 9.1 fL (7.4-10.4); Monocytes # 0.9 10^3/uL (0.2-0.9); Monocytes % 7.3 %; Neutrophils # 9.38 10^3/uL (1.8-7.7); Neutrophils % 74.1 %; Nucleated Red Blood Cells % 0 %; Platelet Count 396 10^3/cmm (157-399); Red Blood Count 4.27 10^6/uL (3.85-5.65); Red Cell Distribution Width 14.5 % (12.1-15.1); White Blood Count 12.65 10^3/uL (3.29-11.43)
[2024-09-26 11:37] LABS: Calcium 8.7 mg/dL (8.5-10.5); Parathyroid Hormone 57.3 pg/mL (15-65)
[2024-09-26 11:38] LABS: Alanine Aminotransferase 9 U/L (0-33); Albumin Level 4.2 g/dL (3.5-5.2); Alkaline Phosphatase 109 U/L (35-105); Anion Gap 16.7 (5-19); Aspartate Amino Transferase 13 U/L (0-32); Blood Urea Nitrogen 16 mg/dL (8-23); Calcium 8.7 mg/dL (8.5-10.5); Carbon Dioxide 27 mmol/L (22-29); Chloride 100 mmol/L (98-107); Free T4 Free Thyroxine 1.54 ng/dL (0.82-1.77); Glomerular Filtration Rate 72.4 mL/min (90-130); Glucose 101 mg/dL (65-115); Osmolality Calculated 291 mOsm/kg (285-295); Potassium 3.7 mmol/L (3.5-5.1); Sodium 140 mmol/L (136-145); Thyroid Stimulating Hormone 0.26 uIU/mL (0.27-4.20); Total Bilirubin 0.2 mg/dL (0.15-1.2); Total Protein 7.2 g/dL (6.6-8.7)
[2024-09-29 09:01] LABS: Thyroglobulin AB <1 IU/mL (< or = 1)
== END 2024-09-26 10:42 | disposition home or self-care (01) ==
LOC: LAB 10:43
PROVIDERS: Absent Provider Nurse Practitioner; PCP Nurse Practitioner Family; Visit Provider Internal Medicine
DX: M19.012 Primary osteoarthritis, left shoulder (principal); M75.22 Bicipital tendinitis, left shoulder; G47.01 Insomnia due to medical condition; E21.0 Primary hyperparathyroidism; E55.9 Vitamin D deficiency, unspecified; D50.8 Other iron deficiency anemias; C75.0 Malignant neoplasm of parathyroid gland
CPT/HCPCS: 36415; 80053; 82310; 83970; 84432; 84439; 84443; 85025; 86800; 99214

== ENCOUNTER 2024-10-22 09:49 | Outpatient (RCR) | payer MEDICARE, MEDICAID, SELFPAY ==
[2024-09-18 09:46] VITALS: BP 124/87; BMI 24.0
== END 2024-11-12 23:59 | disposition home or self-care (01) ==
LOC: SPT 09:49
PROVIDERS: Visit Provider Nurse Practitioner
DX: M19.012 Primary osteoarthritis, left shoulder (principal); M75.22 Bicipital tendinitis, left shoulder
CPT/HCPCS: 97161

== ENCOUNTER → 2024-11-10 15:22 | Outpatient (BNVA) | payer MEDICARE, MEDICAID, SELFPAY ==
[2024-09-18 09:46] VITALS: BP 124/87; BMI 24.0
== END ==
PROVIDERS: PCP Nurse Practitioner Family; Visit Provider Nurse Practitioner
DX: M19.012 Primary osteoarthritis, left shoulder (principal); M75.22 Bicipital tendinitis, left shoulder
CPT/HCPCS: 99214

== ENCOUNTER → 2024-11-12 09:02 | Outpatient (BNVA) | payer MEDICARE, MEDICAID, SELFPAY ==
[2024-09-18 09:46] VITALS: BP 124/87; BMI 24.0
== END ==
PROVIDERS: PCP Nurse Practitioner Family; Visit Provider Internal Medicine
DX: E55.9 Vitamin D deficiency, unspecified (principal); E21.0 Primary hyperparathyroidism; R74.8 Abnormal levels of other serum enzymes
CPT/HCPCS: 99214

== ENCOUNTER 2024-11-21 11:22 | Outpatient (CLI) | payer MEDICARE, MEDICAID, SELFPAY ==
[2024-09-18 09:46] VITALS: BP 124/87; BMI 24.0
[2024-11-21 13:05] LABS: Bilirubin Urine Negative (Negative); Blood Urine 3+ (Negative); Glucose Urine UA Negative (Normal); Ketones Urine Trace (Negative); Leukocyte Esterase Urine 2+ (Negative); Nitrate Urine Positive (Negative); Protein Urine 2+ (Negative); Specific Gravity, Urine 1.022 (1.005-1.030); Urine Appearance Cloudy (CLEAR); Urine Color Dark Yellow (Yellow)
[2024-11-21 13:11] LABS: Bacteria Urine 4+ /hpf; Hyaline Casts Urine 13.07 /lpf; RBC Urine >100 /hpf (0-2); Squamous Epithelial Cell Urine 0-5 /hpf (0-5); WBC Urine >100 /hpf (0-5)
[2024-11-21 13:46] LABS: Add Urine Culture? Yes; UA Slide Review UA Slide Review Perf
== END 2024-11-21 11:23 | disposition home or self-care (01) ==
LOC: LAB 11:25
PROVIDERS: PCP Nurse Practitioner Family; Visit Provider Nurse Practitioner
DX: Z01.818 Encounter for other preprocedural examination (principal)
CPT/HCPCS: 81001; 87077; 87086; 87186

== ENCOUNTER 2024-12-09 10:45 | Outpatient (CLI) | payer MEDICARE, MEDICAID, SELFPAY ==
[2024-09-18 09:46] VITALS: BP 124/87; BMI 24.0
[2024-12-09 11:11] LABS: Bilirubin Urine Negative (Negative); Blood Urine 2+ (Negative); Glucose Urine UA Negative (Normal); Ketones Urine Trace (Negative); Leukocyte Esterase Urine 1+ (Negative); Nitrate Urine Negative (Negative); Protein Urine 1+ (Negative); Specific Gravity, Urine 1.028 (1.005-1.030); Urine Appearance Cloudy (CLEAR); Urine Color Dark Yellow (Yellow); pH Urine 5.5 (5-7)
[2024-12-09 11:13] LABS: Add Urine Microscopic? YES; Bacteria Urine 4+ /hpf; Hyaline Casts Urine 10.32 /lpf
[2024-12-09 11:42] LABS: RBC Urine 25-40 /hpf (0-2); UA Slide Review UA Slide Review Perf; WBC Urine 40-55 /hpf (0-5)
[2024-12-09 11:45] LABS: Free T4 Free Thyroxine 1.39 ng/dL (0.82-1.77); Thyroid Stimulating Hormone 0.59 uIU/mL (0.27-4.20)
== END 2024-12-09 10:46 | disposition home or self-care (01) ==
LOC: LAB 10:47
PROVIDERS: Internal Medicine; PCP Nurse Practitioner Family; Visit Provider Nurse Practitioner
DX: G47.01 Insomnia due to medical condition (principal); N39.0 Urinary tract infection, site not specified; B95.2 Enterococcus as the cause of diseases classified elsewhere
CPT/HCPCS: 36415; 81001; 84439; 84443

== ENCOUNTER 2024-12-23 09:39 | Outpatient (CLI) | payer MEDICARE, MEDICAID, SELFPAY ==
[2024-09-18 09:46] VITALS: BP 124/87; BMI 24.0
[2024-12-23 10:09] LABS: Bilirubin Urine Negative (Negative); Blood Urine Negative (Negative); Glucose Urine UA Negative (Normal); Ketones Urine Negative (Negative); Leukocyte Esterase Urine 2+ (Negative); Nitrate Urine Positive (Negative); Protein Urine Trace (Negative); Specific Gravity, Urine 1.012 (1.005-1.030); Urine Appearance Cloudy (CLEAR); Urine Color Yellow (Yellow); pH Urine 5.5 (5-7)
[2024-12-23 10:15] LABS: Add Urine Microscopic? YES; Bacteria Urine 4+ /hpf; Hyaline Casts Urine 8.67 /lpf; RBC Urine 0-2 /hpf (0-2); Squamous Epithelial Cell Urine 0-5 /hpf (0-5); WBC Urine >100 /hpf (0-5)
[2024-12-23 10:57] LABS: Add Urine Culture? Yes; UA Slide Review UA Slide Review Perf
== END 2024-12-23 09:40 | disposition home or self-care (01) ==
LOC: LAB 09:42
PROVIDERS: PCP Nurse Practitioner Family; Visit Provider Nurse Practitioner
DX: N39.0 Urinary tract infection, site not specified (principal); B95.2 Enterococcus as the cause of diseases classified elsewhere
CPT/HCPCS: 81001; 87077; 87086; 87186

== ENCOUNTER 2024-12-29 13:05 | Outpatient (CLI) | payer MEDICARE, MEDICAID, SELFPAY ==
[2024-09-18 09:46] VITALS: BP 124/87; BMI 24.0
[2024-12-29 13:29] LABS: Bilirubin Urine Negative (Negative); Blood Urine Negative (Negative); Glucose Urine UA Negative (Normal); Ketones Urine Trace (Negative); Leukocyte Esterase Urine Trace (Negative); Nitrate Urine Negative (Negative); Protein Urine 1+ (Negative); Specific Gravity, Urine 1.022 (1.005-1.030); Urine Appearance Clear (CLEAR); Urine Color Yellow (Yellow)
[2024-12-29 13:32] LABS: Add Urine Microscopic? YES; Bacteria Urine Trace /hpf; Hyaline Casts Urine 7.01 /lpf; RBC Urine 0-2 /hpf (0-2)
== END 2024-12-29 13:06 | disposition home or self-care (01) ==
LOC: LAB 13:09
PROVIDERS: PCP Nurse Practitioner Family; Visit Provider Nurse Practitioner
DX: N39.0 Urinary tract infection, site not specified (principal); M19.012 Primary osteoarthritis, left shoulder; M75.22 Bicipital tendinitis, left shoulder
CPT/HCPCS: 81001; 99214

== ENCOUNTER 2025-01-01 13:13 | Observation (INO) | payer MEDICARE, MEDICAID, SELFPAY ==
[2024-09-18 09:46] VITALS: BP 124/87; BMI 24.0
[2025-01-01] VITALS (14 sets, daily range): BP systolic 86–130; BP diastolic 58–83; PULSE 74–93; RESP 16–18; TEMP 36.3–36.7; O2SAT 90–99; BMI 25.7
[2025-01-01 10:23] LABS: Bilirubin Urine Negative (Negative); Blood Urine Negative (Negative); Glucose Urine UA Negative (Normal); Ketones Urine Negative (Negative); Leukocyte Esterase Urine Negative (Negative); Nitrate Urine Negative (Negative); Protein Urine Trace (Negative); Specific Gravity, Urine 1.019 (1.005-1.030); Urine Appearance Clear (CLEAR); Urine Color Yellow (Yellow); pH Urine 5.5 (5-7)
[2025-01-01 10:28] LABS: Add Urine Microscopic? YES; Bacteria Urine None Seen /hpf; RBC Urine 0-2 /hpf (0-2); Squamous Epithelial Cell Urine 0-5 /hpf (0-5); WBC Urine 0-5 /hpf (0-5)
--- NOTE | 2025-01-01 10:40 | W.PM.OPSUD ---
Surgery/Procedure H&P Update DATE OF PROCEDURE: January 01, 2025 DATE H&P PERFORMED: 12/29/24 H&P UPDATE INFORMATION: I have reviewed H&P completed within last 30 days, I have examined patient prior to procedure, No changes to prior documentation and H&P to be scanned into chart PREOP DIAGNOSIS: Left shoulder arthritis PLANNED PROCEDURE: Operation Date: 01/01/25 11:10 Proposed Procedures p Total Reverse Shoulder Arthroplasty(Left) - Jacey Peterson MD Related Problem List Diagnoses (1) Primary osteoarthritis, left shoulder:
[2025-01-01 10:42] LABS: Add Urine Culture? No
[2025-01-01 10:54] LABS: Amphetamines Screen Urine Negative (Negative); Barbiturates Screen Urine Negative (Negative); Benzodiazepines Screen Urine Negative (Negative); Cocaine Screen Urine Negative (Negative); Opiate Screen Urine Negative (Negative); PCP Screen Urine Negative (Negative); THC Screen Urine Negative (Negative)
--- NOTE | 2025-01-01 10:57 | ANES.PREANE2 ---
Pre-Anesthetic Assessment Height/Weight: Height 5 ft 3 in Weight 145 lb Temp Pulse Resp BP Pulse Ox O2 Del Method 98.1 F 91 17 130/83 93 Room Air 01/01/25 09:40 01/01/25 09:40 01/01/25 09:40 01/01/25 09:40 01/01/25 09:40 01/01/25 10:40 Preop Diagnosis: Shoulder arthritis Operation Date: 01/01/25 11:10 Proposed Procedures p Total Reverse Shoulder Arthroplasty(Left) - Jacey Peterson MD Was Beta Maye taken within 24 hours: N/A Was Clonidine taken within 24 hours: N/A Last intake: Intake Last Liquid Date 12/31/24 Last Liquid Time 23:59 Last Solid Date 12/31/24 Last Solid Time 23:59 Social Tobacco and No alcohol Exam alert, oriented x 3, clear to auscultation bilaterally and regular rate & rhythm Airway Submandibular: within normal limits Cervical ROM: within normal limits Mallampati: Class II Dentition: false Anesthetic Plan ASA status: 3 Anesthesia: General and Regional (specify below) Other: No prior issues with anesthesia NPO since yesterday evening History of GERD on omeprazole Prior methamphetamine abuse, talk screen negative today COPD, current smoker History of PTSD/fibromyalgia CBC from October reviewed and acceptable for procedure Plan for general anesthesia with preop nerve block Medications/Allergies Home Medications ?Medication ?Instructions ?Recorded ?Confirmed ?Last Taken ?Type cholecalciferol (vitamin D3) 250 250 mcg PO DAILY s/p thyroidectomy 02/01/24 12/31/24 06/23/24 Rx mcg (10,000 unit) capsule #30 caps ferrous sulfate 325 mg (65 mg 325 mg PO DAILY Iron #90 tabs 02/07/24 12/31/24 06/23/24 Rx iron) tablet (Feosol) duloxetine 60 mg capsule,delayed 60 mg PO BID depression 06/19/24 12/31/24 06/23/24 History release (Cymbalta) gabapentin 600 mg tablet 600 mg PO BID 06/19/24 12/31/24 12/31/24 History meloxicam 7.5 mg tablet 15 mg PO DAILY PRN pain 06/19/24 12/31/24 06/23/24 History omeprazole 20 mg capsule,delayed 20 mg PO DAILY 06/19/24 12/31/24 06/23/24 History release quetiapine 25 mg tablet (Seroquel) 25 mg PO QPM PRN Sleep 06/19/24 12/31/24 06/18/24 History methocarbamol 750 mg tablet 750 mg PO TID muscle pain #90 tabs 06/30/24 12/31/24 Unknown Rx tramadol 50 mg tablet 50 mg PO Q8H PRN pain #21 tabs 11/21/24 12/31/24 Unknown Rx levothyroxine 150 mcg tablet 150 mcg PO DAILY 12/31/24 01/01/25 01/01/25 04:30 History Allergies Allergy/AdvReac Type Severity Reaction Status Date / Time codeine Allergy ALGY-Hives Verified 12/31/24 14:40 PFSH Anesthesia Medical History UTI (urinary tract infection) due to Enterococcus Peripheral neuropathy Parathyroid cancer Iron deficiency anemia Psychiatric care Hepatitis B Osteoarthritis involving multiple joints on both sides of body Bilateral hands, arms, feet and knees Vitamin D deficiency COPD (chronic obstructive pulmonary disease) Constipation by delayed colonic transit Chronic tension headaches GERD (gastroesophageal reflux disease) Kidney stones, calcium oxalate Insomnia disorder Allergic rhinitis Nonunion after arthrodesis Post traumatic stress disorder (PTSD) Benign neoplasm of bone of hand Fibromyalgia Surgical History History of total thyroidectomy 01/22/2024 [facility] Total neck dissection/left and central, reimplantation parathyroid History of parathyroid surgery Hx of colonoscopy 5 yrs ago History of esophagogastroduodenoscopy (EGD) 5 yrs ago Postoperative state History of hysterectomy History of tonsillectomy Family History Father Aneurysm Mother Cancer neck Social History Smoking and tobacco/nicotine status: never used tobacco/nicotine Quit status (tobacco/nicotine): not considering quitting Alcohol intake: current Alcohol intake frequency: holidays/special occasions only Substance/Drug Use: former Date of last use: year ago Adopted: No Caregiver/support person: No Lives independently: No Household members: none Housing: Apartment Marital status: Number of children: 2 Highest education level completed: Some College, No Degree service: No Current occupational status: disabled Current occupational exposures/hazards: No Pets and animals: No Leisure activites: other Leisure activities details: watch TV Sexually active: No Do you think of yourself as: Straight/Heterosexual Current gender identity: Female Clarisa/Anabaptism: Restorationism Special clarisa needs: No Agree to transfusion: Yes Data Anesthesia BMP 01/01/25 10:00 Creatinine Cancelled Urine 01/01/25 01/01/25 Range/Units 10:00 10:00 Urine Color Yellow (Yellow) Urine Appearance Clear (CLEAR) Urine pH 5.5 Cancelled (5-7) Ur Specific Plummer 1.019 (1.005-1.030) Urine Protein Trace A (Negative) Urine Glucose (UA) Negative (Normal) Urine Ketones Negative (Negative) Urine Nitrate Negative (Negative) Urine Bilirubin Negative (Negative) Ur Leukocyte Esterase Negative (Negative) Urine RBC 0-2 (0-2) /hpf Urine WBC 0-5 (0-5) /hpf
[2025-01-01] MEDS: CELEcoxib 200 mg Capsule 400 MG PO (11:04)
[2025-01-01] MEDS: acetaminophen 1,000 MG/100 ML PIGGYBACK 400 MG IV (11:04)
[2025-01-01] MEDS: sodium chloride 0.9% 1,000 ML 30 ML IV (11:04)
[2025-01-01] MEDS: gabapentin 300 mg Capsule PO (11:05)
--- NOTE | 2025-01-01 11:10 | SUR.PREOP ---
1111-patient preop was delayed for urine results. Patient is now prepped and ready for surgery and set up for nerve block
--- NOTE | 2025-01-01 11:13 | SUR.PREOP ---
1113-timeout completed at bedside by dr green for an interscalene nerve block
--- NOTE | 2025-01-01 11:14 | SUR.PREOP ---
30ml ropivicaine and 4mg decadron used for block
--- NOTE | 2025-01-01 11:29 | ANES.PROC ---
Anesthesia Procedures Procedure/Date: 01/01/25 Nerve Block ^: Nerve Block 1: Main Anesthesia: other (100 mcg fentanyl) Time Out Performed: Yes Consent: requested by attending/covering physician and from patient Nerve block location: interscalene Anesthesia monitors applied: pulse oximetry, EKG, BP cuff and oxygen Nerve block position: supine Anesthetic Used: ropivicaine 0.5% Amount of anesthesia used (mL): 30 Ultrasound used to: recognize landmarks Nerve Stimulator Used?: Yes Interscalene/Femoral BLK: other needle (pjunk 4inch) Injection: neg aspiration of heme Patient Tolerated Procedure: well Complications: none Additional Comments: jackie
[2025-01-01] MEDS: tranexamic acid 1,000 mg/10mL SDV 1000 MG (12:15)
[2025-01-01] MEDS: VANCOMYCIN ADD-Vantage 1,000 MG VIAL 1000 MG INTRA-ARTI (12:36)
[2025-01-01] MEDS: ceFAZolin 1,000 mg SDV 1000 MG IRRIGATION (12:37)
--- NOTE | 2025-01-01 15:17 | P.OP_ITS ---
Operative Report Date of procedure: January 01, 2025 Pre-op diagnosis: Severe left shoulder degenerative osteoarthritis secondary to rotator cuff arthropathy Post-op diagnosis: Severe left shoulder degenerative osteoarthritis secondary to rotator cuff arthropathy Post-op findings: Severe degenerative osteoarthritis with a new bit of cartilage over the humeral head, complete tear of rotator cuff. Procedure done: Left reverse total shoulder arthroplasty Implants: The Tornier Perform Reverse shoulder system with a size 25 mm standard glenoid baseplate, a size 36 mm cannulated standard glenosphere, reversed, and a size 3B humeral stem with a flex reversed tray, centered, +0 mm and a reversed insert with +6 mm thickness Specimens removed/disposition: Bone, disposed of Pathology: None Surgeon: Jacey Peterson MD Mushroom Cutter: Melony Cortes, nurse practitioner, whose services were required for positioning, retraction, exposure, implantation, and completion of the surgical procedure Anesthesia: General (Intubated with preoperative interscalene block, ASA 3) Estimated blood loss (mL): 150 IV fluids (mL): 1,000 Urine output (mL): 0 (No Rincon) Complications: None Findings: Severe degenerative osteoarthritis with complete rotator cuff tear with retraction Condition: stable Disposition: PACU (Then admit to floor under observation status for postoperative rehab and pain management) Brief History: This 64-year-old woman presented to the office with plaints of severe left shoulder pain. She was unresponsive to conservative measures. The patient was previously scheduled, but had to be canceled secondary to urinary tract infection. On the morning of surgery, repeat urinalysis was obtained and was without evidence of infection. Risks and complications were again discussed with the patient. Consents were signed and questions were answered. She was given further opportunity on the morning of surgery. Procedure: The patient was brought to the operating theater and placed in the beachchair positioner following administration of general anesthesia intubated, ASA 3, as well as the preoperative regional block.? When she was positioned and confirmation was made that we could place the shoulder in appropriate positions to accomplish the surgical procedure, the left upper extremity was prepped and draped in usual fashion utilizing DuraPrep.? We confirmed we could visualize appropriately with fluoroscopy as well prior to prepping.? Following the DuraPrep, the patient's arm was draped free but so that we could use the arm crawford to secure positions of the arm and this allowed us full access to the shoulder.? Preoperatively, the patient's arm had been marked and I subsequently initialed this.? During our surgical pause, we confirmed the site and side of surgery and this blake was visualized.? Additionally, the clavicle as well as the acromioclavicular joint and the coracoid were marked to allow appropriate incision placement.? Preoperative antibiotic, Ancef 2 g.? Surgical pause was performed prior to incision. Incision then began between the acromioclavicular joint and coracoid and continued along the deltopectoral groove.? This was a standard deltopectoral incision.? Dissection continued through skin and soft tissues using a scalpel, and hemostasis was obtained using electrocautery.? The deltopectoral fascia was incised.? Soft tissues were then elevated from the subscapularis tendon.? Retractors were placed.? The coracoid was palpated as well as the musculocutaneous nerve and these were retracted as well as the deltoid on the opposite side.? The leash of vessels at the inferior aspect of the subscapularis was cauterized.? Tag sutures were placed 2 cm medial to the biceps tendon and further medial and an incision was made through the capsule and subscapularis tendon between the 2 lines of sutures.? Incision was continued transversely both superiorly through the rotator interval and inferiorly to allow access to the shoulder joint. The humeral head was manipulated and dislocated. Soft tissues were elevated off of the neck of the humerus following osteophyte removal.? In this way we were able to mobilize the humerus.? The canal finder/placed to the humeral head in appropriate position. This passed without difficulty. The proximal portion of the humerus was further opened with a hand candy cutter. Once this was accomplished, canal finder was removed. Broaching began at a size 1 and progressed to a size 4. The broach was visualized in the proximal humerus via fluoroscopy. Proximal plate was placed over the cut surface of the humerus to protect it during glenoid preparation. We were then able to move the humerus out of the way to visualize the glenoid. Soft tissues were resected from around glenoid.? Cautery was used to do this so that we could fully visualize for placement of the components.? Care was taken to protect the musculocutaneous and also the axillary nerves during this process. The glenoid was visualized.? The guidewire was placed into the glenoid.? This was a bicortical wire, and measured approximately 30 mm into the bone. Prior to removal of the guidewire, reaming was accomplished, and we reamed until we had removed the cartilaginous tissue and had good cortical bone. Following this the guide pin was removed and a depth gauge was utilized to assure that this was the appropriate length screw and that we were not outside of the bone.? Finding this to be so and having reamed to good bleeding bone, reaming was accomplished for the posterior portion of the glenoid baseplate. Baseplate was placed in position with the 30 mm central screw. The superior and inferior screws were then placed with the superior screw being a 5.0 mm x 18 mm and the inferior screw being 5.0 mm x 34 mm. With this, we had excellent fixation. We had good purchase with the screws, and therefore, the standard glenosphere for the Tornier perform reverse shoulder was placed in position. This was a 36 mm glenosphere. It was found to seat nicely. The screw was then placed through the glenosphere into the baseplate. Attention was redirected to the humerus. Humerus was brought into position and evaluated for looseness of the joint. It was felt that there was not enough room for placement of the reverse tray with insert, and therefore, the size 4 broach was removed. The size 3 broach was seated into the humerus until it was stable. A calcar reamer was used to remove the bone above the size 3 broach. The broach was noted to fit nicely. There was enough room for the other components without overtightening. Trial reduction was then accomplished utilizing the Tornier flex reversed tray with a reversed insert, +6 mm thickness, angle B. With this, there was noted to be excellent stability. Shoulder was once again dislocated, trial components were removed from the humerus, and the size 3B Tornier standard humeral stem was impacted into position. Onto this was placed a combination of the Flex Reverse tray and the Flex Reversed insert with +6 mm thickness. Shoulder was reduced and placed through range of motion. The construct was felt to be acceptable. The shoulder was then copiously irrigated. Attention was directed to closure.? The shoulder was irrigated copiously with normal saline with Betadine and subsequently this was irrigated with normal saline.? Closure was then accomplished utilizing 0 Ethibond combined with 0 Vicryl to close anterior rotator cuff tissues.?The deltopectoral groove was then evaluated.? Soft tissues were closed in this area with 0 Vicryl.? We then placed vancomycin powder and Surgiflo.? The subcutaneous tissues were closed using 2-0 Monocryl.? The skin was closed with a running 3-0 Monocryl.? This was followed by Alexa reyes and Ras.? The patient was placed in a slingshot style sling and was returned to recovery room in satisfactory condition where she will be discharged to the floor for postoperative rehabilitation and pain management.? There were no specimens and no complications.? X-rays were obtained intraoperatively, and these demonstrated both appropriate position and reduction of the components as well as excellent fit of the humeral canal. Patient was transferred to the floor for postoperative rehabilitation and pain management Related Problem List Diagnoses (1) Primary osteoarthritis, left shoulder:
--- NOTE | 2025-01-01 15:28 | XR_ITS ---
WS: [id number] Left shoulder, C-arm fluoroscopy views, 01/01/2025 Clinical Data: OR PIC, TOTAL SHOULDER Comparison: Left shoulder, 06/04/2024 Findings: Dr. Peterson performed a reverse total left shoulder arthroplasty. XR/XR shoulder LT min 2V* [id number] Impression: Left shoulder arthroplasty.
[2025-01-01] MEDS: nicotine 21 mg Patch 1 PATCH TRANSDERMA (16:51)
[2025-01-01] MEDS: tranexamic acid 1,000 MG/100 ML PREMIX 600 MG IV (21:22)
[2025-01-02] VITALS (8 sets, daily range): BP systolic 105–138; BP diastolic 62–74; PULSE 77–82; RESP 17–20; TEMP 36.9–37; O2SAT 91–97
[2025-01-02] MEDS: HYDROcodone-acetaminophen 5-325 mg Tablet 1 TAB PO ×2 (03:18→08:03)
--- NOTE | 2025-01-02 03:28 | PC.NURSE ---
Patient started to complain of pain. This nurse went to check MAR to see what medications were available for pain relief nurse noticed no orders were placed except for nicotine patch. This nurse then contacted ortho injection mold technician Dr. Kendrick for orders. Dr. Kendrick verbally ordered 2mg IVP Morphine Q1H PRN for pain and also Hydrocodone 5-325mg PO for pain. This nurse then read back orders and once okayed by physician placed orders. Medications were flagged due to patients codiene allergy. This nurse discussed with patient the medications that were ordered and asked if patient had received these medication in the past and if they had ever had a reaction to said medications. Patient stated they had taken both medications before with no reaction. This nurse administered PO hydrocodone and will continue to monitor patient for any reactions.
[2025-01-02] MEDS: morphine 4 mg/mL SDV 1 mL 2 MG IVP (05:06)
[2025-01-02] MEDS: nicotine 21 mg Patch 1 PATCH TRANSDERMA (08:02)
[2025-01-02] MEDS: oxyCODONE 5 mg IR Tab/Cap PO ×2 (09:48→13:26)
[2025-01-02] MEDS: VANCOMYCIN ADD-Vantage 1,000 MG in 0.9% NaCl ADD-Vantage 250 ML 250 MG IV (11:08)
[2025-01-02] MEDS: methocarbamol 750 mg Tablet PO (13:27)
--- NOTE | 2025-01-02 14:26 | P.DS_ITS ---
Discharge Providers Date of Admission: 01/01/25 13:13 Date of Discharge: January 02, 2025 Attending Provider at Admission: Jacey Peterson MD Attending Provider at Discharge: Jacey Peterson MD Primary Care Provider: REYES Woodruff Diagnoses at Discharge Discharge Diagnosis (1) Primary osteoarthritis, left shoulder: Status: Acute (2) Status post reverse arthroplasty of left shoulder: Status: Acute Permanent problem details: Date of procedure: January 01, 2025 Diagnosis: Severe left shoulder degenerative osteoarthritis secondary to rotator cuff arthropathy Procedure done: Left reverse total shoulder arthroplasty Implants: The [employer] Perform Reverse shoulder system with a size 25 mm standard glenoid baseplate, a size 36 mm cannulated standard glenosphere, reversed, and a size 3B humeral stem with a flex reversed tray, centered, +0 mm and a reversed insert with +6 mm thickness Reason for Visit Reason for Visit: M19.012 Brief History: This 64-year-old woman presented to the office with plaints of severe left shoulder pain. She was unresponsive to conservative measures. The patient was previously scheduled, but had to be canceled secondary to urinary tract inf ection. On the morning of surgery, repeat urinalysis was obtained and was without evidence of infection. Risks and complications were again discussed with the patient. Consents were signed and questions were answered. She was given further opportunity on the morning of surgery. Hospital Course Hospital Course Patient was admitted under observation status following same-day surgery for left reverse shoulder arthroplasty. This was well-tolerated. The patient did well postoperatively. Pain was well-controlled. She was medically stable. For this reason, plans were made for her discharge to home with home physical therapy. Patient was given the protocol for reverse shoulder arthroplasty. Risks and complications of the surgery and postoperative rehab were discussed with the patient. She was in agreement for discharge to home. Physical Exam Const: COMMON NORMALS: no acute distress, average body habitus, patient oriented x3 and alert GENERAL APPEARANCE: cooperative and comfortable ORIENTATION/CONSCIOUSNESS: Yes awake HENMT: COMMON NORMALS: normocephalic and atraumatic HEAD & SCALP: normocephalic and atraumatic Eye: GENERAL EYE: appearance normal, both eyes and all related structures Chest: COMMONS NORMALS: normal inspection of the chest Resp: COMMON NORMALS: normal respiratory effort EFFORT & INSPECTION: Yes able to speak in complete sentences and Yes symmetric chest movement Extremity: LEFT UPPER EXTREMITY: Yes shoulder joint (Patient is in her postoperative sling.) Left shoulder joint: Yes ROM (Not evaluated.) and Yes neurovascular exam (Intact distally.) Neuro: COMMON NORMALS: patient oriented x3 SENSORIUM/ORIENTATION: Yes alert Psych: COMMON NORMALS: mental status grossly normal APPEARANCE: Yes grossly normal ATTITUDE: Yes calm and Yes engaged ATTENTION/CONCENTRATION: Yes attention grossly intact Skin: COMMON NORMALS: no rashes or lesions noted GENERAL SKIN EXAM: no rashes or lesions noted Discharge Data Studies Completed and Pending Completed Studies During Hospitalization Category Date Time Status XR shoulder LT min 2V* 05254 Routine Exams 01/01/25 15:28 Completed Radiology Impressions Shoulder X-Ray 01/01/25 15:28 Impression: Left shoulder arthroplasty. Laboratory Results Creatinine Cancelled 01/01/25 10:00 Specific Falkner Cancelled 01/01/25 10:00 Urine Color Yellow (Yellow) 01/01/25 10:00 Urine Appearance Clear (CLEAR) 01/01/25 10:00 Urine pH 5.5 (5-7) 01/01/25 10:00 Urine pH Cancelled 01/01/25 10:00 Ur Specific Falkner 1.019 (1.005-1.030) 01/01/25 10:00 Urine Protein Trace (Negative) A 01/01/25 10:00 Urine Glucose (UA) Negative (Normal) 01/01/25 10:00 Urine Ketones Negative (Negative) 01/01/25 10:00 Urine Blood Negative (Negative) 01/01/25 10:00 Urine Nitrate Negative (Negative) 01/01/25 10:00 Urine Bilirubin Negative (Negative) 01/01/25 10:00 Urine Urobilinogen 1.0 mg/dL (Negative) 01/01/25 10:00 Ur Leukocyte Esterase Negative (Negative) 01/01/25 10:00 Urine RBC 0-2 /hpf (0-2) 01/01/25 10:00 Urine WBC 0-5 /hpf (0-5) 01/01/25 10:00 Ur Squamous Epith Cells 0-5 /hpf (0-5) 01/01/25 10:00 Amorphous Sediment Not Reportable 01/01/25 10:00 Urine Bacteria None seen /hpf (NONE) 01/01/25 10:00 Hyaline Casts 0.40 /lpf 01/01/25 10:00 Urine Oxidant Cancelled 01/01/25 10:00 Urine Opiates Screen Negative ng/mL (Negative) 01/01/25 10:00 Urine Opiates Level Cancelled 01/01/25 10:00 Urine Oxycodone Cancelled 01/01/25 10:00 U Methadone Metabolites Cancelled 01/01/25 10:00 Barbiturates Cancelled 01/01/25 10:00 Ur Barbiturates Screen Negative ng/mL (Negative) 01/01/25 10:00 Phencyclidine (PCP) Cancelled 01/01/25 10:00 Ur Phencyclidine Scrn Negative ng/mL (Negative) 01/01/25 10:00 Amphetamines Cancelled 01/01/25 10:00 Ur Amphetamines Screen Negative ng/mL (Negative) 01/01/25 10:00 Benzodiazepines Cancelled 01/01/25 10:00 U Benzodiazepines Scrn Negative ng/mL (Negative) 01/01/25 10:00 Cocaine Metabolite Cancelled 01/01/25 10:00 Urine Cocaine Screen Negative ng/mL (Negative) 01/01/25 10:00 U Marijuana (THC) Screen Negative ng/mL (Negative) 01/01/25 10:00 U Marijuana Metabolites Cancelled 01/01/25 10:00 Abn Spec Valid Drug Scn Cancelled 01/01/25 10:00 Urine Drug Screen Note Cancelled 01/01/25 10:00 Ur Drug Screen Comment Cancelled 01/01/25 10:00 Vitals Last Vital Signs Temp 98.4 F 01/02/25 11:19 Pulse 77 01/02/25 11:19 Resp 18 01/02/25 13:26 BP 138/74 01/02/25 11:19 Pulse Ox 93 01/02/25 11:19 O2 Del Method Room Air 01/02/25 11:19 O2 Flow Rate 2 01/01/25 17:16 Discharge Plan Discharge Patient Disposition: Home Health Service Condition: Stable Prescriptions: New nicotine 21 mg/24 hr Patch 24 Hour 1 patch transdermal DAILY 14 Days Qty: 14 0RF oxycodone 5 mg Tablet 5 mg PO Q4H PRN (Reason: Moderate Pain) 7 Days Qty: 40 0RF Continued ferrous sulfate [Feosol] 325 mg (65 mg iron) tablet 325 mg PO DAILY Qty: 90 2RF cholecalciferol (vitamin D3) 250 mcg (10,000 unit) capsule 250 mcg PO DAILY Qty: 30 5RF methocarbamol 750 mg tablet 750 mg PO TID Qty: 90 2RF tramadol 50 mg tablet 50 mg PO Q8H PRN (Reason: pain) Qty: 21 0RF levothyroxine 150 mcg tablet 150 mcg PO DAILY Rx Instructions: TAKE 1 TABLET BY MOUTH EVERY DAY quetiapine [Seroquel] 25 mg tablet 25 mg PO QPM PRN (Reason: Sleep) gabapentin 600 mg tablet 600 mg PO BID omeprazole 20 mg capsule,delayed release(DR/EC) 20 mg PO DAILY meloxicam 7.5 mg tablet 15 mg PO DAILY PRN (Reason: pain) duloxetine [Cymbalta] 60 mg capsule,delayed release(DR/EC) 60 mg PO BID Discharge Orders: Discharge Order (Routine); Ordered 01/02/25 Ordered By: Jacey Peterson Referrals: [facility] Home Care ([facility]) [Outside] Referral Note: PT needed Jacey Peterson MD [Physician, Orthopedics] - 01/12/25 2:15 pm Discharge Diet: Advance as tolerated and Usual diet Discharge Activity: Limit activity as instructed and As per PT/OT instructions Patient Instructions: Nicotine (Absorbed through the skin), Oxycodone, Rapid Release (By mouth), Urinary Tract Infection in Women (DC), Acute Wound Care (DC), Opioid Safety, Post Anesthesia Care, OZH: Reverse Total Shoulder Activity Restrictions/Additional Instructions: Ice to left shoulder. You may shower, but do not submerge your shoulder in water. Adjust activities as per the protocol you were sent home with. Range of motion to elbow, wrist, and hand. Discharge Attestations Time Spent in Discharge Care*: greater than 30 min Specific Discharge Activities: educating patient, documenting/other paperwork and evaluating patient/reviewing data Quality Metrics Clinical Quality Measures [ No reported AMI, CVA or VTE this stay] Coding Level of Care Code Acute Code for Chg Fwd Diagnoses Primary osteoarthritis, left shoulder M19.012 Status post reverse arthroplasty of left shoulder Z96.612
--- NOTE | 2025-01-02 15:20 | PC.NURSE ---
Discharge instructions provided to pt at this time. NO questions or concerns voiced. Pt to private vehicle via wheelchair with all belongings.
== END 2025-01-02 15:42 | disposition home health service (06) ==
LOC: MEDSURG 13:13
PROVIDERS: Student in an Organized Health Care Education/Training Program; Admitting Provider Specialist; PCP Nurse Practitioner Family; Visit Provider Specialist
PROC: (CPT 23472; principal; 2025-01-01 11:10)
DX: M19.012 Primary osteoarthritis, left shoulder (principal); M75.122 Complete rotator cuff tear or rupture of left shoulder, not specified as traumatic; K21.9 Gastro-esophageal reflux disease without esophagitis; J44.9 Chronic obstructive pulmonary disease, unspecified; F43.10 Post-traumatic stress disorder, unspecified; M79.7 Fibromyalgia; F15.11 Other stimulant abuse, in remission; F17.200 Nicotine dependence, unspecified, uncomplicated
CPT/HCPCS: 23472; 51702; 73030; 76000; 80306; 81001; 97760; C1776; G0378; J0131; J0690; J1100; J2250; J2270; J2405; J2704; J3010; J3370; J3490; J7030; J7050; J9999

== ENCOUNTER → 2025-01-12 14:12 | Outpatient (BNVA) | payer MEDICARE, MEDICAID, SELFPAY ==
[2024-09-18 09:46] VITALS: BP 124/87; BMI 24.0
== END ==
PROVIDERS: PCP Nurse Practitioner Family; Visit Provider Nurse Practitioner
DX: Z96.612 Presence of left artificial shoulder joint (principal); M19.012 Primary osteoarthritis, left shoulder
CPT/HCPCS: 99024

== ENCOUNTER → 2025-02-02 16:03 | Outpatient (BNVA) | payer MEDICARE, MEDICAID, SELFPAY ==
[2024-09-18 09:46] VITALS: BP 124/87; BMI 24.0
== END ==
PROVIDERS: PCP Nurse Practitioner Family; Visit Provider Specialist
DX: Z98.890 Other specified postprocedural states (principal); Z96.612 Presence of left artificial shoulder joint
CPT/HCPCS: 73030; 99024

== ENCOUNTER 2025-02-11 07:39 | Outpatient (RCR) | payer MEDICARE, MEDICAID, SELFPAY ==
[2024-09-18 09:46] VITALS: BP 124/87; BMI 24.0
== END 2025-02-12 23:59 | disposition home or self-care (01) ==
LOC: SPT 07:39
PROVIDERS: Visit Provider Nurse Practitioner
DX: Z47.1 Aftercare following joint replacement surgery (principal); Z96.612 Presence of left artificial shoulder joint; E21.0 Primary hyperparathyroidism; E55.9 Vitamin D deficiency, unspecified; R74.8 Abnormal levels of other serum enzymes
CPT/HCPCS: 97161; 99214

== ENCOUNTER 2025-02-11 09:30 | Outpatient (CLI) | payer MEDICAID, SELFPAY ==
[2024-09-18 09:46] VITALS: BP 124/87; BMI 24.0
[2025-02-11 10:34] LABS: Calcium 9.0 mg/dL (8.5-10.5)
[2025-02-11 10:59] LABS: Thyroid Stimulating Hormone 0.29 uIU/mL (0.27-4.20)
[2025-02-11 11:22] LABS: Free T4 Free Thyroxine 1.07 ng/dL (0.82-1.77)
== END 2025-02-11 09:31 | disposition home or self-care (01) ==
LOC: LAB 09:35
PROVIDERS: PCP Internal Medicine; Visit Provider Internal Medicine
DX: G47.01 Insomnia due to medical condition (principal); M79.7 Fibromyalgia; E21.0 Primary hyperparathyroidism; N20.0 Calculus of kidney; E55.9 Vitamin D deficiency, unspecified; C75.0 Malignant neoplasm of parathyroid gland; E89.0 Postprocedural hypothyroidism
CPT/HCPCS: 36415; 82306; 82310; 83970; 84432; 84439; 84443; 86800

== ENCOUNTER 2025-02-13 05:00 | Outpatient (RCR) | payer MEDICARE, MEDICAID, SELFPAY ==
[2024-09-18 09:46] VITALS: BP 124/87; BMI 24.0
== END 2025-03-15 23:59 | disposition home or self-care (01) ==
LOC: SPT 05:00
PROVIDERS: PCP Nurse Practitioner Family; Visit Provider Nurse Practitioner
DX: M62.81 Muscle weakness (generalized) (principal); Z47.1 Aftercare following joint replacement surgery; M25.512 Pain in left shoulder; E21.0 Primary hyperparathyroidism; E55.9 Vitamin D deficiency, unspecified; R74.8 Abnormal levels of other serum enzymes
CPT/HCPCS: 97110

== ENCOUNTER → 2025-03-23 10:11 | Outpatient (BNVA) | payer MEDICARE, MEDICAID, SELFPAY ==
[2024-09-18 09:46] VITALS: BP 124/87; BMI 24.0
== END ==
PROVIDERS: PCP Nurse Practitioner Family; Visit Provider Nurse Practitioner
DX: Z98.890 Other specified postprocedural states (principal); Z96.612 Presence of left artificial shoulder joint
CPT/HCPCS: 73030; 99214

== ENCOUNTER 2025-04-10 14:26 | Outpatient (RCR) | payer MEDICARE, MEDICAID, SELFPAY ==
[2024-09-18 09:46] VITALS: BP 124/87; BMI 24.0
== END 2025-04-14 23:59 | disposition home or self-care (01) ==
LOC: SPT 14:26
PROVIDERS: Visit Provider Nurse Practitioner
DX: Z47.1 Aftercare following joint replacement surgery (principal); Z96.612 Presence of left artificial shoulder joint
CPT/HCPCS: 97110

== ENCOUNTER 2025-04-15 06:30 | Outpatient (RCR) | payer MEDICARE, MEDICAID, SELFPAY ==
[2024-09-18 09:46] VITALS: BP 124/87; BMI 24.0
== END 2025-05-15 23:59 | disposition home or self-care (01) ==
LOC: SPT 06:30
PROVIDERS: PCP Nurse Practitioner Family; Visit Provider Nurse Practitioner
DX: Z47.1 Aftercare following joint replacement surgery (principal); Z96.612 Presence of left artificial shoulder joint
CPT/HCPCS: 97110

== ENCOUNTER → 2025-04-16 15:32 | Outpatient (BNVA) | payer MEDICARE, MEDICAID, SELFPAY ==
[2024-09-18 09:46] VITALS: BP 124/87; BMI 24.0
== END ==
PROVIDERS: PCP Nurse Practitioner Family; Visit Provider Orthopaedic Surgery
DX: M54.12 Radiculopathy, cervical region (principal); M54.9 Dorsalgia, unspecified
CPT/HCPCS: 72050